=== PATIENT | male | born 1990 | race Caucasian/White ===

== ENCOUNTER 2020-07-22 14:39 | Outpatient (REF) | payer OTHER, SELFPAY | END 2020-07-22 14:40 | disposition home or self-care (01) | LOC: HO.LAB 14:39 | PROVIDERS: Visit Provider Internal Medicine | DX: Z20.822 Contact with and (suspected) exposure to COVID-19 (principal) | CPT/HCPCS: 36415; C9803; U0003 ==

== ENCOUNTER 2021-09-08 07:25 | Emergency (ER) | payer OTHER, SELFPAY ==
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
[2021-09-08 07:33] VITALS: BP 154/103; PULSE 100; RESP 18; O2SAT 99; BMI 30.4
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
[2021-09-08] MEDS: iohexoL 350 MG/ML 100 ML INFUS..BTL IV (08:28)
[2021-09-08 08:33] LABS: MANUAL DIFF FLAG NO
[2021-09-08 08:35] LABS: Basophils Percent Auto 0.2 % (0-2); Eosinophils Absolute Auto 0.2 X10*3/uL (0.0-0.4); Eosinophils Percent Auto 1.6 % (0-4); Hematocrit 33.9 % (42.0-52.0); Hemoglobin 10.7 g/dl (14.0-18.0); Imm Gran Abs Auto 0.07 X10*3/uL (0.00-0.03); Imm Gran Pct Auto 0.7 % (0.0-0.4); Lymphocytes Absolute Auto 1.5 X10*3/uL (1.2-4.9); Lymphocytes Percent Auto 15.1 % (20-40); Mean Corpuscular HGB Conc 31.6 g/dl (31.0-36.0); Mean Corpuscular Hemoglobin 26.6 pg (27.0-33.0); Mean Corpuscular Volume 84.1 fL (80.0-98.0); Mean Platelet Volume 10.2 fL (9.4-12.4); Monocytes Absolute Auto 0.6 X10*3/uL (0.1-1.2); Monocytes Percent Auto 5.4 % (2-11); Neutrophils Absolute Auto 7.8 x10*3/uL (2.0-8.3); Platelet Count 276 X10*3/uL (160-400); Red Blood Count 4.03 X10*6/uL (4.60-5.80); Red Cell Distribution Width 13.7 % (11.0-16.0); White Blood Count 10.2 X10*3/uL (4.8-10.8)
[2021-09-08] MEDS: 0.9 % Sodium Chloride 1,000 ML 999 ML IVCONT (08:35)
[2021-09-08 08:40] LABS: INTERNATIONAL NORM RATIO 1.4 (0.9-1.1); Prothrombin Time 16.1 SEC (9.9-13.0)
[2021-09-08 08:44] LABS: Ethanol < 10 mg/dL; Lactic Acid 1.1 mmol/L (0.5-2.0)
[2021-09-08 08:48] LABS: Alanine Aminotransferase 13 U/L (0-40); Albumin Level 3.9 g/dL (3.5-5.0); Alkaline Phosphatase 89 U/L (39-117); Anion Gap 12 (12-20); Aspartate Amino Transferase 18 U/L (5-37); Bilirubin Direct 0.3 mg/dL (0.0-0.5); Bilirubin Total 0.6 mg/dL (0.0-1.0); Blood Urea Nitrogen 8 mg/dL (9-16); Calcium 9.1 mg/dL (8.4-10.2); Carbon Dioxide 26 mmol/L (22-29); Chloride 98 mmol/L (96-108); Creatinine Clr Calc Pharmacy 158.2; Estimated Glomerular Filt Rate > 60; Glucose Random 102 mg/dL (60-115); Lipase 4 U/L (8-78); Potassium 3.7 mmol/L (3.3-5.1); Sodium 132 mmol/L (135-145); Total Protein 7.2 g/dL (6.5-8.0)
[2021-09-08 08:55] LABS: COVID-19 Test Negative (Negative)
[2021-09-08 09:32] VITALS: BP 133/87; PULSE 83; RESP 19; TEMP 37.1; O2SAT 95
== END 2021-09-08 12:04 ==
PROVIDERS: Emergency Provider Emergency Medicine
DX: S93.401A Sprain of unspecified ligament of right ankle, initial encounter (principal); M25.571 Pain in right ankle and joints of right foot; F14.10 Cocaine abuse, uncomplicated; F11.10 Opioid abuse, uncomplicated; M54.2 Cervicalgia; G44.309 Post-traumatic headache, unspecified, not intractable; R10.9 Unspecified abdominal pain; V47.5XXA Car driver injured in collision with fixed or stationary object in traffic accident, initial encounter; Y93.9 Activity, unspecified; Y92.410 Unspecified street and highway as the place of occurrence of the external cause; Y99.9 Unspecified external cause status; Z20.822 Contact with and (suspected) exposure to COVID-19; Z79.899 Other long term (current) drug therapy
CPT/HCPCS: 29515; 36415; 70450; 71260; 72125; 73610; 74177; 80048; 80076; 82077; 83605; 83690; 83735; 85025; 85610; 87635; 96360; 99284; Q9967

== ENCOUNTER 2022-05-14 16:05 | Emergency (ER) | payer OTHER, SELFPAY ==
[2022-05-14 16:10] VITALS: BP 122/84; BP 150/90; PULSE 95; PULSE 98; RESP 18; TEMP 36.6; O2SAT 100; O2SAT 95; BMI 37.5
--- NOTE | 2022-05-14 16:22 | PC.NURSE ---
patient a/ox4 . patient presents for overdose after snorting one bag of heroine . shital . heart rate regular at 98 beats per minute lungs clear . skin pink warm and dry . abdomen soft not tender . positive bowel sounds in all four quadrants . patient aware of plan of care to be observed after receiving narcan for overdose .
--- OUTSIDE RECORDS SUMMARY | 2022-05-14 16:33 | XMS_ITS | Continuity of Care Document ---
:1990 Author Organization [facility] Address [address] [place] [address]- Care Team Providers Name Role Phone Not on Staff, PCP Primary Care Physician Unavailable Encounter [facility] [place] Date(s): 04/27/20 - 04/27/[address] [address]- [facility] Encounter Diagnosis Toe fracture, right (Final) - 04/27/20 Discharge Disposition: A-D/C Home Attending Physician: Cristina Brantley MD Admitting Physician: Cristina Brantley MD Referring Physician: Not on Staff, Referring MD Allergies, Adverse Reactions, Alerts Substance Reaction Severity Status NKA Active Medications Crutches See Instructions, # 1 application, Maintenance, use as needed, 01/20/14 0:08:11, Compound Start Date: 01/20/14 Status: OrderedExcedrin Migraine 2 tablet, By Mouth, Every 6 hours, 0 Refills, Maintenance, 05/23/17 18:16:00 Start Date: 05/23/17 Status: Orderedibuprofen 400 mg oral tablet 1 tablet = 400 mg, By Mouth, Every 6 hours, # 30 tablet, 0 Refills, Maintenance, 01/20/14 0:07:41, Tablet Start Date: 01/20/14 Status: OrderedMethadone Liquid mg, By Mouth, 0 Refills, Maintenance, 05/23/17 18:16:12, Solution Start Date: 05/23/17 Status: OrderedPrilosec 40 mg oral enteric coated capsule 1 capsule = 40 mg, By Mouth, Daily, 0 Refills, Maintenance, 05/23/17 18:15:37 Start Date: 05/23/17 Status: OrderedSplint See Instructions, # 1 application, Maintenance, as needed, 01/20/14 0:08:18, Compound Start Date: 01/20/14 Status: Ordered Results Radiology Reports Exam Date Time Procedure Performing Provider Status 04/27/20 8:46 PM Ankle Min 3 Views Right Laura Diaz; Aut h (Verified) Notes:(Ankle Min 3 Views Right) Reason For Exam: DeformityRESULT: Ankle Min 3 Views Right Foot Min 3 Views Right, Ankle Min 3 Views Right Hx of Present Illness: Right 1st Toe Injury; Reason: Deformity; Clinical Question(s): Fracture COMPARISON: Right ankle x-ray 10/21/2016 FINDINGS: There is a nondisplaced vertical fracture involving the proximal aspect of the proximal phalanx great toe. Fracture approaches but does not appear to reach the articular surface of the first metatarsophalangeal joint. 7 mm corticated triangular ossific focus overlying the dorsal tarsometatarsal joints appears unchanged. Mild posterior calcaneal spurring. Joint spaces are intact. Talar dome intact. Small talar beak and small Stieda process. Mild soft tissue swelling about the great toe. IMPRESSION: Nondisplaced vertical fracture of proximal phalanx great toe. WSN: [id number] Ordering Physician: Hao Colon Dictated By: Hao James MD Dictated Date/Time: 04/27/20 9:14 pm Reviewed By: Hao James MD Signed By: Hao James MD Signed Date/Time: 04/27/20 9:14 pm Transcribed By: CALIN Transcribed Date/Time: 04/27/20 9:08 pm Exam Date Time Procedure Performing Provider Status 04/27/20 8:46 PM Foot Min 3 Views Right Laura Diaz; Auth (Verified) Notes:(Foot Min 3 Views Right) Reason For Exam: DeformityRESULT: Foot Min 3 Views Right Foot Min 3 Views Right, Ankle Min 3 Views Right Hx of Present Illness: Right 1st Toe Injury; Reason: Deformity; Clinical Question(s): Fracture COMPARISON: Right ankle x-ray 10/21/2016 FINDINGS: There is a nondisplaced vertical fracture involving the proximal aspect of the proximal phalanx great toe. Fracture approaches but does not appear to reach the articular surface of the first metatarsophalangeal joint. 7 mm corticated triangular ossific focus overlying the dorsal tarsometatarsal joints appears unchanged. Mild posterior calcaneal spurring. Joint spaces are intact. Talar dome intact. Small talar beak and small Stieda process. Mild soft tissue swelling about the great toe. IMPRESSION: Nondisplaced vertical fracture of proximal phalanx great toe. WSN: [id number] Ordering Physician: Hao Colon Dictated By: Hao James MD Dictated Date/Time: 04/27/20 9:14 pm Reviewed By: Hao James MD Signed By: Hao James MD Signed Date/Time: 04/27/20 9:14 pm Transcribed By: CALIN Transcribed Date/Time: 04/27/20 9:08 pm Vital Signs Most recent to oldest 1 2 3 [Reference Range]: Weight 90 kg 90 kg (04/27/20 9:42 PM) (04/27/20 7:19 PM) Oxygen Saturation [94-100 %] 99 % 98 % 99 % (04/27/20 9:42 PM) (04/27/20 7:20 PM) (04/27/20 7:17 PM) Pulse Rate [55-90 bpm] 67 bpm 81 bpm 89 bpm (04/27/20 9:42 PM) (04/27/20 7:20 PM) (04/27/20 7:17 PM) Blood Pressure [90-138/55-84 134/68 mm Hg 152/79 mm Hg mm Hg] (04/27/20 9:42 PM) *H* (04/27/20 7:20 PM) Respiratory Rate [16-30 20 br/min 20 br/min 18 br/mi n br/min] (04/27/20 9:42 PM) (04/27/20 7:20 PM) (04/27/20 7:17 PM) Temperature [96.8-100.4 98.5 DegF DegF] (04/27/20 7:20 PM) Mode of Delivery (Oxygen) Room air Room air Room a ir (04/27/20 9:42 PM) (04/27/20 7:20 PM) (04/27/20 7:17 PM) Blood pressure sites Arm, right (04/27/20 7:20 PM) Temperature Route Oral (04/27/20 7:20 PM) Dry Weight 90 kg 90 kg (04/27/20 9:42 PM) (04/27/20 7:19 PM) Social History Social History Type Response Smoking Status Never smoker entered on: 05/23/17 Sex
--- OUTSIDE RECORDS SUMMARY | 2022-05-14 16:33 | XMS_ITS | Continuity of Care Document ---
:1990 Author Organization [facility] Address [address] [place] [address]- Care Team Providers Name Role Phone Julian GORDON MD, Robert Dozier Primary Care Physician En[place] [facility] [place] Date(s): 05/04/22 - 05/04/[address] [address]- Discharge Disposition: A-D/C Home Attending Physician: Cristina Brantley MD Admitting Physician: Cristina Brantley MD Referring Physician: Not on Staff, Referring MD Allergies, Adverse Reactions, Alerts No Known Allergies Medications Crutches See Instructions, # 1 application, [...] 01/20/14 0:08:18, Compound Start Date: 01/20/14 Status: OrderedSuboxone 8 mg-2 mg sublingual film 2 film, Sublingual, Daily, dissolve under the tongue, # 10 film, 0 Refills, Maintenance, 05/04/22 15:41:00 EDT, Film, ABDIEL [id number], 2 film Sublingual Daily,x5 days,Instr:dissolve under the tongue Start Date: 05/04/22 Stop Date: 05/09/22 Status: Ordered Vital Signs Most recent to oldest 1 2 3 [Reference Range]: Oxygen Saturation [94-100 98 % 97 % 98 % %] (05/04/22 4:41 PM) (05/04/22 2:12 PM) (05/04/22 11:42 AM) Pulse Rate [55-90 bpm] 85 bpm 88 bpm 90 bpm (05/04/22 4:41 PM) (05/04/22 2:12 PM) (05/04/22 11:42 AM) Blood Pressure 136/76 mm Hg 151/96 mm Hg 153/100 mm Hg [90-138/55-84 mm Hg] (05/04/22 4:41 PM) *H* *H* (05/04/22 2:12 PM) (05/04/22 11: 42 AM) Respiratory Rate [16-30 19 br/min 18 br/min 20 br/mi n br/min] (05/04/22 4:41 PM) (05/04/22 2:12 PM) (05/04/22 11:42 AM) Temperature [96.8-100.4 97.7 DegF 97.9 DegF 97.7 Deg F DegF] (05/04/22 4:41 PM) (05/04/22 2:12 PM) (05/04/22 11:42 AM) Mode of Delivery (Oxygen) Room air Room air Room a ir (05/04/22 4:41 PM) (05/04/22 2:12 PM) (05/04/22 11:42 AM) Temperature Route Oral Oral Oral (05/04/22 4:41 PM) (05/04/22 2:12 PM) (05/04/22 11:42 AM) Social History Social History Type Response Smoking Status Never smoker entered on: 05/23/17 Sex Patient Care team information PersonnelName: Julian GORDON MD, Robert Dozier Address: Address: [address] [place] [id number]
--- OUTSIDE RECORDS SUMMARY | 2022-05-14 16:33 | XMS_ITS | Continuity of Care Document ---
:1990 Author Organization [facility] Address [address] [place] [address]- Care Team Providers Name Role Phone Not on Staff, PCP Primary Care Physician Unavailable Encounter [facility] [place] Date(s): 08/12/21 - 08/13/[address] [address]- Discharge Disposition: A-D/C Walkout Attending Physician: Not on Staff, Attending MD Admitting Physician: Not on Staff, Admitting MD Referring Physician: Not on Staff, Referring [...] 0:08:18, Compound Start Date: 01/20/14 Status: Ordered Vital Signs Most recent to oldest [Reference Range]: 1 2 Oxygen Saturation [94-100 %] 96 % 99 % (08/12/21 11:11 PM) (08/12/21 10:51 PM) Pulse Rate [55-90 bpm] 123 bpm 132 bpm *H* *H* (08/12/21 11:11 PM) (08/12/21 10:51 PM) Blood Pressure [90-138/55-84 mm Hg] 136/95 mm Hg (08/12/21 11:11 PM) Respiratory Rate [16-30 br/min] 16 br/min (08/12/21 11:11 PM) Temperature [96.8-100.4 DegF] 100.1 DegF (08/12/21 11:11 PM) Mode of Delivery (Oxygen) Room air (08/12/21 11:11 PM) Blood pressure sites Arm, right (08/12/21 11:11 PM) Temperature Route Oral (08/12/21 11:11 PM) Social History Social History Type Response Smoking Status Never smoker entered on: 05/23/17 Sex
--- OUTSIDE RECORDS SUMMARY | 2022-05-14 16:33 | XMS_ITS | Continuity of Care Document ---
:1990 Author Organization [facility] Address [address] [place] [address]- Care Team Providers Name Role Phone Julian GORDON MD, Robert Dozier Primary Care Physician Encounter [facility] [place] Date(s): 05/05/22 - 05/05/[address] [address]- Encounter Diagnosis Opioid overdose (Final) - 05/05/22 Discharge Disposition: A-D/C Home Attending Physician: Tariq Sheriff MD Admitting Physician: Tariq Sheriff MD Referring Physician: Not on Staff, Referring [...] Refills, Maintenance, 05/04/22 15:41:00 EDT, Film, ABDIEL [id number], 2 film Sublingual Daily,x5 days,Instr:dissolve under the tongue Start Date: 05/04/22 Stop Date: 05/09/22 Status: Ordered Vital Signs Most recent to oldest 1 2 3 [Reference Range]: Oxygen Saturation [94-100 %] 96 % 95 % 98 % (05/05/22 7:45 PM) (05/05/22 7:22 PM) (05/05/22 6:03 PM) Pulse Rate [55-90 bpm] 87 bpm 94 bpm 92 bpm (05/05/22 7:45 PM) *H* *H* (05/05/22 7:22 PM) (05/05/22 6:0 3 PM) Blood Pressure [90-138/55-84 122/72 mm Hg 118/72 mm Hg 113 /69 mm Hg mm Hg] (05/05/22 7:45 PM) (05/05/22 7:22 PM) (05/05/22 6:03 PM) Respiratory Rate [16-30 16 br/min 15 br/min 14 br/mi n br/min] (05/05/22 7:45 PM) *L* *L* (05/05/22 7:22 PM) (05/05/22 6:0 3 PM) Temperature [96.8-100.4 98.1 DegF 98.6 DegF DegF] (05/05/22 5:55 PM) (05/05/22 3:55 PM) Liters per Minute 2 L/min (05/05/22 6:03 PM) Mode of Delivery (Oxygen) Room air Room air Nasal cannula (05/05/22 7:45 PM) (05/05/22 7:22 PM) (05/05/22 6:03 PM) Blood pressure sites Arm, left Arm, left Arm, left (05/05/22 7:45 PM) (05/05/22 7:22 PM) (05/05/22 6:03 PM) Temperature Route Oral Oral (05/05/22 5:55 PM) (05/05/22 3:55 PM) Social History Social History Type Response Smoking Status Never smoker entered on: 05/23/17 Sex Patient Care team information PersonnelName: Julian GORDON MD, Robert Dozier Address: Address: [address] [place] [id number]
--- OUTSIDE RECORDS SUMMARY | 2022-05-14 16:33 | XMS_ITS | Continuity of Care Document ---
:1990 Author Organization [facility] Address [address] [place] [address]- Care Team Providers Name Role Phone Not on Staff, PCP Primary Care Physician Unavailable Encounter [facility] [place] Date(s): 02/28/20 - 02/29/[address] [address]- [facility] Discharge Disposition: A-D/C Walkout Attending Physician: Not [...] recent to oldest [Reference Range]: 1 2 Height 170 cm (02/28/20 10:27 PM) Weight 91 kg (02/28/20 10:27 PM) Oxygen Saturation [94-100 %] 99 % 100 % (02/28/20 10:27 PM) (02/28/20 10:25 PM) Pulse Rate [55-90 bpm] 112 bpm 134 bpm *H* *H* (02/28/20 10:27 PM) (02/28/20 10:25 PM) Blood Pressure [90-138/55-84 mm Hg] 157/88 mm Hg *H* (02/28/20 10:27 PM) Respiratory Rate [16-30 br/min] 18 br/min 18 br/mi n (02/28/20 10:27 PM) (02/28/20 10:25 PM) Temperature [96.8-100.4 DegF] 99.1 DegF (02/28/20 10:27 PM) Mode of Delivery (Oxygen) Room air Room air (02/28/20 10:27 PM) (02/28/20 10:25 PM) Blood pressure sites Arm, left (02/28/20 10:27 PM) Temperature Route Oral (02/28/20 10:27 PM) Dry Weight 91 kg (02/28/20 10:27 PM) Social History Social History Type Response Smoking Status Never smoker entered on: 05/23/17 Sex
--- OUTSIDE RECORDS SUMMARY | 2022-05-14 16:33 | XMS_ITS | Continuity of Care Document ---
:1990 Author Organization [facility] Address [address] [place] [address]- Care Team Providers Name Role Phone Not on Staff, PCP Primary Care Physician Unavailable Encounter [facility] [place] Date(s): 02/19/22 - 02/19/22 [facility] [address] [place] [address]- Encounter Diagnosis Injury of left thumb (Final) - 02/19/22 Discharge Disposition: A-D/C Senior Care, Long Term, or [facility]pc Fac Attending Physician: Deon Dodson MD Admitting Physician: Deon Dodson MD Referring Physician: Not on Staff, Referring [...] Exam Date Time Procedure Performing Provider Status 02/19/22 5:43 PM Hand Min 3 Views Left Yael Moctezuma; Auth (Paulo adorno) Notes:(Hand Min 3 Views Left) Reason For Exam: PainRESULT: Hand Min 3 Views Left PROCEDURE: Hand Min 3 Views Left CLINICAL INDICATION: 31 years old Male with Reason: Pain; Clinical Question(s): Fracture. TECHNIQUE: Three views of the LEFT hand are obtained. COMPARISONS: None. FINDINGS: Bones and joints: No fracture or dislocation. Joint spaces are normal. Soft Tissues: Regional soft tissues are unremarkable other than subcutaneous edema along the base ofthe thumb.. Radiolucent wrist band noted. No evidence of radiopaque foreign body. IMPRESSION: 1. No evidence of acute bony injuries. 2. Soft tissue swelling base of thumb. Thank you for allowing me to participate in the care of this patient. WSN: [id number] Ordering Physician: Rafat Bateman Dictated By: Chris Esqueda MD Dictated Date/Time: 02/19/22 5:46 pm Reviewed By: Chris Esqueda MD Signed By: Chris Esqueda MD Signed Date/Time: 02/19/22 5:46 pm Transcribed By: CALIN Transcribed Date/Time: 02/19/22 5:44 pm Vital Signs Most recent to oldest [Reference Range]: 1 2 Oxygen Saturation [94-100 %] 100 % 98 % (02/19/22 7:36 PM) (02/19/22 5:21 PM) Pulse Rate [55-90 bpm] 77 bpm 81 bpm (02/19/22 7:36 PM) (02/19/22 5:21 PM) Blood Pressure [90-138/55-84 mm Hg] 120/44 mm Hg 130/ 67 mm Hg (02/19/22 7:36 PM) (02/19/22 5:21 PM) Respiratory Rate [16-30 br/min] 20 br/min 18 br/mi n (02/19/22 7:36 PM) (02/19/22 5:21 PM) Temperature [96.8-100.4 DegF] 98 DegF 98.3 DegF (02/19/22 7:36 PM) (02/19/22 5:21 PM) Mode of Delivery (Oxygen) Room air Room air (02/19/22 7:36 PM) (02/19/22 5:21 PM) Temperature Route Oral Oral (02/19/22 7:36 PM) (02/19/22 5:21 PM) Social History Social History Type Response Smoking Status Never smoker entered on: 05/23/17 Sex
--- NOTE | 2022-05-14 16:36 | ED_ITS ---
HPI - Overdose General Chief Complaint: Overdose Stated Complaint: OD,NARCAN GIVEN W/GOOD RESULTS Time Seen by Provider: 05/14/22 16:20 Source: patient Mode of arrival: EMS History of Present Illness HPI Narrative: 31-year-old male who is brought in by EMS after he reportedly snorted 1 bag of heroin and passed out in the [employer]eng shop striking his head. He received Narcan and supplemental oxygen with good response and is currently feeling awake and alert. He denies any intentional overdose, denies SI/HI, denies any other medical problems and at this time he is adamantly refusing any detox or evaluation. Related Data Allergies Allergy/AdvReac Type Severity Reaction Status Date / Time loratadine [From CLARITIN] Allergy Unknown UNK Unverified 03/27/20 16:53 tetracycline [TETRACYCLINE] Allergy Unknown HIVES Unverified 03/27/20 16:53 Review of Systems Review of Systems: Pertinent positives and negatives as stated in HPI 10 point review of systems is otherwise negative. PMFSH Past Medical History Source: nursing notes reviewed Medical History No known health problems Polysubstance abuse Social History Social History Patient Tobacco Use Status: Current everyday Tobacco user Smoked in Last 30 Days: Yes Substance Use Type: Crack/Cocaine and Marijuana Advance Directives: No Advance Directives Information Provided: No Physical Exam Vital Signs: Vital Signs: Last Vital Signs Temp 97.9 F 05/14/22 16:10 Pulse 98 05/14/22 16:10 Resp 18 05/14/22 16:10 BP 150/90 H 05/14/22 16:10 Pulse Ox 100 05/14/22 16:10 O2 Del Method 05/14/22 16:10 BMI result Body Mass Index 37.5 VITAL SIGNS: Reviewed. GENERAL: Well developed, well nourished, in no acute distress. HEAD: Normocephalic/small abrasion to right forehead EYES: PERRLA, EOMI EARS: Ext canals without abnormality OROPHARYNX: no oral lesions noted, posterior pharynx clear LUNGS: Normal breath sounds. No adventitious sounds or accessory muscle use. SpO2<100> CARDIOVASCULAR: Regular rate and rhythm without noted murmurs ABDOMEN: Soft, non-tender, non-distended with bowel sounds. MUSCULOSKELETAL: No tenderness, deformities, or effusions noted on gross insp ection. EXTREMITIES: No cyanosis, clubbing or edema. SKIN: Inspection of the skin reveals no rashes NEUROLOGIC: Alert and oriented x 4. Course Course Course Narrative: 31-year-old male with history and clinical presentation consistent with accidental overdose with heroin and currently denies any SI/HI and is refusing any evaluation by the recovery team. Patient understands that he will be staying in the emergency room for 2 hours. Patient will be discharged with home Narcan and has a safe ride home as his father is at bedside. Patient is hemodynamically stable and will be discharged home with home Narcan. Discharge Plan Discharge Clinical Impression: Drug overdose, Heroin abuse Patient Disposition: Home, Self-Care Instructions: Polysubstance Abuse (ED), Adult Overdose (ED), Naloxone (Into the nose) Additional Instructions: Return to the ER for further help, should you needed it.
--- NOTE | 2022-05-14 16:56 | MHC.RECOVSUP ---
? Reason for consult Recovery Support o Current location: ED18H o Identified substance use concern: Heroin - Overdose - Support ? Intervention: o Community resources provided o Harm reduction discussion ? Plan: o Patient to follow up with [facility] after discharge ? Additional information: Met with Patient and we talk about Harm Reduction & recovery.. We talk about onions.. Patient had 6 month clean and did a bag of Heroin.. Patient stated that he will be going to [facility]..
== END 2022-05-14 18:27 | disposition home or self-care (01) ==
PROVIDERS: Emergency Provider Student in an Organized Health Care Education/Training Program
DX: T40.1X1A Poisoning by heroin, accidental (unintentional), initial encounter (principal); Y92.9 Unspecified place or not applicable; F11.10 Opioid abuse, uncomplicated; F14.10 Cocaine abuse, uncomplicated; F17.200 Nicotine dependence, unspecified, uncomplicated; Z71.6 Tobacco abuse counseling
CPT/HCPCS: 99284; 99285

== ENCOUNTER 2022-05-15 04:56 | Observation (INO) | payer OTHER, SELFPAY ==
[2022-05-15] VITALS (9 sets, daily range): BP systolic 107–138; BP diastolic 47–81; PULSE 72–118; RESP 10–20; TEMP 37–37.2; O2SAT 88–100; BMI 37.5
--- NOTE | ~2022-05-15 | XR_ITS ---
EXAMINATION: XR CHEST CLINICAL INFORMATION: Shortness of breath COMPARISON: 11/28/2018 TECHNIQUE: Frontal view of the chest was obtained. FINDINGS: Low lung volumes. No acute finding. No infiltrate or effusion. No failure. The cardiac silhouette is felt to be within normal limits. The hilar structures do not appear pathologically enlarged. XR/XR chest 1V IMPRESSION: No acute finding
--- OUTSIDE RECORDS SUMMARY | 2022-05-15 05:43 | XMS_ITS | Continuity of Care Document ---
:1990 Author Organization [facility] Address [address] [place] [id number]- Care Team Providers Name Role Phone Not on Staff, PCP Primary Care Physician Unavailable [place] [facility] [place]/14/22 - 05/14/[address] [address]- Encounter Diagnosis Opioid overdose (Final) - 05/14/22 Opioid use disorder (Final) - 05/14/22 Discharge Disposition: A-D/C Home Attending Physician: Dyana Eubanks MD Admitting Physician: Dyana Eubanks MD Referring Physician: Not on Staff, Referring [...] 01/20/14 0:07:41, Tablet Start Date: 01/20/14 Status: OrderedIbuprofen Tablet 400 mg, Tablet, By Mouth, Once, STAT, 05/14/22 20:41:00 EDT, Stop date 05/14/22 20:41:00 EDT Start Date: 05/14/22 Stop Date: 05/14/22 Status: CompletedMethadone Liquid mg, By Mouth, 0 Refills, Maintenance, [...] Refills, Maintenance, 05/04/22 15:41:00 EDT, Film, ABDIEL [id number], 2 film Sublingual Daily,x5 days,Instr:dissolve under the tongue Start Date: 05/04/22 Stop Date: 05/09/22 Status: OrderedSuboxone 8 mg-2 mg Sublingual Film 2 film, Sublingual, Daily, or as directed dissolve under the tongue [id number], # 10 film, 0 Refills, Maintenance, 05/14/22 22:56:00 EDT, [facility]/pharmacy #[id number], Partial fill upon patient request if the prescription is for a schedule II opioid drug.... Start Date: 05/14/22 Status: Ordered Vital Signs Most recent to oldest 1 2 3 [Reference Range]: Oxygen Saturation [94-100 %] 98 % 99 % 98 % (05/14/22 11:45 PM) (05/14/22 9:22 PM) (05/14/22 8: 42 PM) Pulse Rate [55-90 bpm] 82 bpm 80 bpm 78 bpm (05/14/22 11:45 PM) (05/14/22 9:22 PM) (05/14/22 8: 42 PM) Blood Pressure [90-138/55-84 115/75 mm Hg 122/78 mm Hg 118 /85 mm Hg mm Hg] (05/14/22 11:45 PM) (05/14/22 9:22 PM) (05/14/22 8: 42 PM) Respiratory Rate [16-30 18 br/min 16 br/min 18 br/mi n br/min] (05/14/22 11:45 PM) (05/14/22 10:17 PM) (05/14/22 9 :22 PM) Temperature [96.8-100.4 DegF] 98 DegF 98.2 DegF (05/14/22 11:45 PM) (05/14/22 8:42 PM) Mode of Delivery (Oxygen) Room air Room air Room a ir (05/14/22 11:45 PM) (05/14/22 9:22 PM) (05/14/22 8: 42 PM) Blood pressure sites Arm, right Arm, left (05/14/22 9:22 PM) (05/14/22 8:42 PM) Temperature Route Oral (05/14/22 8:42 PM) Social History Social History Type Response Smoking Status Never smoker entered on: 05/23/17 Sex Patient Care team information PersonnelName: Not on Staff, PCP
[2022-05-15 06:13] LABS: Amphetamine Screen Urine Not Detected (Not Detect); Barbiturates, Urine Not Detected (Not Detect); Benzodiazepines Screen Urine Not Detected (Not Detect); Cannabinoid Screen Urine POSITIVE (Not Detect); Cocaine Screen Urine POSITIVE (Not Detect); Fentanyl, urine POSITIVE (Not Detect); Opiate Screen Urine POSITIVE (Not Detect); Phencyclidine Screen Urine Not Detected (Not Detect)
--- NOTE | 2022-05-15 06:40 | ED.GENADULT ---
HPI - General Adult General Chief complaint: General Medical Stated complaint: drug use Time Seen by Provider: 05/15/22 06:27 Source: patient and EMS Mode of arrival: EMS Limitations: no limitations History of Present Illness HPI narrative: Patient comes to emergency room via EMS after having an accidental overdose. Patient was found by his father all conscious, the father administered Narcan and patient woke up. Patient denies drug use. However, he was discharged last night from [facility] for an overdose. Patient complaining of nausea vomiting and diarrhea after receiving Narcan. When I spoke to the patient, patient admits to using multiple substances. Patient states that this was an accidental overdose, denies suicidal or homicidal ideation. Related Data Allergies Allergy/AdvReac Type Severity Reaction Status Date / Time loratadine [From CLARITIN] Allergy Unknown UNK Unverified 03/27/20 16:53 tetracycline [TETRACYCLINE] Allergy Unknown HIVES Unverified 03/27/20 16:53 Review of Systems Review of Systems: Constitutional : No Weight loss, No Fever, No Chills, No Night Sweats, No Fatigue, No Malaise ENT/Mouth : No Hearing loss, No Ear Pain, No Nasal Congestion, No Sinus Pain, No Hoarseness, No sore throat, No Rhinorrhea, No Swallowing Difficulty Eyes: No Eye Pain, No Swelling, No Redness, No Foreign Body, No Discharge, No Vision Changes Cardiovascular : No Chest Pain, No SOB, No Dyspnea on Exertion, No Orthopnea, No Edema, No Palpitations Respiratory : No Cough, No Sputum, No Wheezing, No Smoke Exposure, No Dyspnea Gastrointestinal : No Nausea, No Vomiting, No Diarrhea, No Constipation, No abdominal Pain, No Hematochezia, No Melena Genitourinary : no irregular bleeding, No Dysuria, No Urinary Frequency, No Hematuria, No Urinary Incontinence, No Urgency, No Flank Pain, No Urinary Flow Changes, No Hesitancy Musculoskeletal : No joint pain, No Myalgias, No Joint Swelling Skin : No Skin Lesions, No rash Neuro : No Weakness, No Numbness, No Paresthesias, No Loss of Consciousness, No Dizziness, No Headache Psych : No Anxiety/Panic, No Depression, No SI/HI/AH/VH, substance abuse Heme/Lymph: No Bruising, No Bleeding,No Lymphadenopathy Endocrine : No Polyuria, No Polydipsia, No Temperature Intolerance PMF Past Medical History Medical History No known health problems Polysubstance abuse Social History Social History Alcohol intake: current Alcohol intake frequency: other Alcohol type: beer Patient Tobacco Use Status: Current everyday Tobacco user Smoked in Last 30 Days: Yes Use of substances other than those prescribed or required for medical reasons: Yes Substance Use Type: Heroin and Marijuana Substance Use Type Other:: Pt reports he sniffs heroin. Substance Use Frequency Other:: every other day Last Used Substance: Hours (ago) Any prior treatment program specific to substance use: No Advance Directives: No Advance Directives Information Provided: No Physical Exam ED Vital Signs: Vital Signs - 24 hr 05/15/22 05:05 05/15/22 05:48 Temperature 98.6 F 98.6 F Pulse Rate 83 84 Respiratory Rate 16 18 Blood Pressure 138/74 138/74 Pulse Oximetry 100 100 Oxygen Delivery Method Room Air Room Air BMI result Body Mass Index 37.5 Const Other: Appearance: Alert. Oriented X3. No acute distress. Somnolent but easily arousable Eyes: Pupils equal, round and reactive to light. ENT: Pharynx normal. Neck: Normal inspection. Neck supple. No lymph nodes noted. No crepitus CVS: Normal heart rate and rhythm. Pulses normal. Normal S1 and S2 Respiratory: No respiratory distress. Breath sounds normal. No Wheezing. No rales , oxygen saturation remains at 100% on room air Abdomen: Soft and nontender. No rigidity. No distention. Skin: Skin warm and dry. Normal skin color. Normal skin turgor. Extremities: No lower extremity edema. No Lacerations. No Rash Neuro: Oriented X 3. No motor deficit. No sensory deficit. Moving all extremities. No slurred speech. CN 2 through 12 grossly intact Psych: calm, cooperative, normal affect Course Course Course Narrative: Patient's oxygen 100% on room air, easily arousable. Somnolent but wakes up easily. Patient denies suicidal or homicidal ideation. Urine tested positive for opiates, fentanyl, cocaine and marijuana. Patient states that he would like to talk to the care team Care team consult pending. Patient will be provided with home Narcan Physician observation started at 06:40 Sign-out given to Dr. Maria Medical Decision Making Lab Data Labs: Lab Results 05/15/22 Range/Units 05:53 Urine Opiates Screen POSITIVE H (Not Detect) Urine Fentanyl Screen POSITIVE H (Not Detect) Ur Barbiturates Screen Not Detected (Not Detect) Ur Phencyclidine Scrn Not Detected (Not Detect) Ur Amphetamines Screen Not Detected (Not Detect) U Benzodiazepines Scrn Not Detected (Not Detect) Urine Cocaine Screen POSITIVE H (Not Detect) U Marijuana (THC) Screen POSITIVE H (Not Detect) Discharge Plan Discharge Clinical Impression: Accidental overdose, Polysubstance abuse Patient Disposition: Still a Patient
--- NOTE | 2022-05-15 07:47 | MHC.CARE ---
EVELYNE Pt [place] [facility] an accidental overdose on heroin. Pt tested postive for opiates, fentanyl, cocaine and marijuana. Pt reports he was recently released from [facility]. Pt reports he was doing well for a while though recently relapsed. Pt reports he has a therapist and is going to be connected with a psychiatrist on [facility] in [place]. Pt reports he has support through [facility]. Pt reports a hx of detox admissions prior to incarceration. Pt resides with his father who is supportive. Pt reports interest in detox. Plan for recovery team to complete detox bedsearch unspecified opiate use disorder adjustment disorder
--- NOTE | 2022-05-15 09:02 | PC.NURSE ---
PT A&Ox3, breakfast given, ambulated to BR independently. Denies any pain, denies SI/HI. VSS.
--- NOTE | 2022-05-15 11:00 | PC.NURSE ---
pt satting high 30s - mid 40s, appearance dusky. pt placed on 6L oxy-mask, brought his O2 sat to 98 - 99%. pt falling asleep but awake easily when his name is called. denies sob/cp. vss
[2022-05-15] MEDS: Naloxone HCl 2 MG/2 ML SYRINGE IVPUSH (11:12)
[2022-05-15] MEDS: 0.9 % Sodium Chloride 1,000 ML 999 ML IVCONT (11:25)
[2022-05-15 11:34] LABS: MANUAL DIFF FLAG NO
[2022-05-15 11:37] LABS: Basophils Percent Auto 0.1 % (0-2); Eosinophils Percent Auto 0.1 % (0-4); Hematocrit 39.1 % (42.0-52.0); Hemoglobin 12.5 g/dl (14.0-18.0); Imm Gran Abs Auto 0.06 X10*3/uL (0.00-0.03); Imm Gran Pct Auto 0.4 % (0.0-0.4); Lymphocytes Absolute Auto 1.7 X10*3/uL (1.2-4.9); Lymphocytes Percent Auto 11.9 % (20-40); Mean Corpuscular Hemoglobin 26.8 pg (27.0-33.0); Mean Corpuscular Volume 83.7 fL (80.0-98.0); Mean Platelet Volume 9.8 fL (9.4-12.4); Monocytes Absolute Auto 0.6 X10*3/uL (0.1-1.2); Monocytes Percent Auto 3.8 % (2-11); Neutrophils Percent Auto 83.7 % (45-73); Platelet Count 274 X10*3/uL (160-400); Red Blood Count 4.67 X10*6/uL (4.60-5.80); Red Cell Distribution Width 13.6 % (11.0-16.0); White Blood Count 14.3 X10*3/uL (4.8-10.8)
[2022-05-15] MEDS: Naloxone HCl Nasal 4 MG SPRAY NOSTRILALT (11:46)
[2022-05-15 12:13] LABS: Alanine Aminotransferase 33 U/L (0-40); Albumin Level 4.4 g/dL (3.5-5.0); Alkaline Phosphatase 107 U/L (39-117); Anion Gap 18 (12-20); Aspartate Amino Transferase 29 U/L (5-37); Bilirubin Total 0.5 mg/dL (0.0-1.0); Blood Urea Nitrogen 12 mg/dL (9-16); Calcium 8.6 mg/dL (8.4-10.2); Carbon Dioxide 25 mmol/L (22-29); Chloride 99 mmol/L (96-108); Creatinine Clr Calc Pharmacy 106.8; Estimated Glomerular Filt Rate > 60; Glucose Random 124 mg/dL (60-115); Potassium 4.7 mmol/L (3.3-5.1); Sodium 137 mmol/L (135-145); Total Protein 7.3 g/dL (6.5-8.0)
[2022-05-15] MEDS: Acetaminophen 325 MG TABLET 650 MG PO (12:27)
[2022-05-15] MEDS: ondansetron HCL 4 MG/2 ML VIAL IVPUSH (12:27)
--- NOTE | 2022-05-15 13:28 | PC.NURSE ---
PT father in to visit and brought PTs new suboxone prescription. PT stated I took one just now, I was told that after 24 hours I need to take this . Dr. Gonzalez notified. Suboxone sent home with father.
--- NOTE | 2022-05-15 14:18 | ED.GENADULT ---
HPI - General Adult General Chief complaint: General Medical Stated complaint: drug use Time Seen by Provider: 05/15/22 06:27 Source: patient and EMS Mode of arrival: EMS Limitations: no limitations Related Data Allergies Allergy/AdvReac Type Severity Reaction Status Date / Time loratadine [From CLARITIN] Allergy Unknown UNK Unverified 03/27/20 16:53 tetracycline [TETRACYCLINE] Allergy Unknown HIVES Unverified 03/27/20 16:53 PMFSH Past Medical History Medical History No known health problems Polysubstance abuse Social History Social History Alcohol intake: current Alcohol intake frequency: other Alcohol type: beer Patient Tobacco Use Status: Current everyday Tobacco user Smoked in Last 30 Days: Yes Use of substances other than those prescribed or required for medical reasons: Yes Substance Use Type: Heroin and Marijuana Substance Use Type Other:: Pt reports he sniffs heroin. Substance Use Frequency Other:: every other day Last Used Substance: Hours (ago) Any prior treatment program specific to substance use: No Advance Directives: No Advance Directives Information Provided: No Physical Exam ED Vital Signs: Vital Signs - 24 hr 05/15/22 05:05 05/15/22 05:48 05/15/22 09:04 Temperature 98.6 F 98.6 F Pulse Rate 83 84 105 H Respiratory Rate 16 18 18 Blood Pressure 138/74 138/74 126/50 L Pulse Oximetry 100 100 Oxygen Delivery Method Room Air Room Air Room Air Oxygen Flow Rate 05/15/22 11:06 05/15/22 11:18 05/15/22 13:10 Temperature 98.9 F Pulse Rate 118 H 99 85 Respiratory Rate 10 L 15 17 Blood Pressure 127/63 115/81 110/47 L Pulse Oximetry 98 100 96 Oxygen Delivery Method Nasal Cannula Nasal Cannula Room Air Oxygen Flow Rate 6 6 BMI result Body Mass Index 37.5 Course Reevaluation(s) Reevaluation #1: I Medical Decision Making Lab Data Result diagrams: 05/15/22 11:20 05/15/22 11:20 Labs: Lab Results 05/15/22 05/15/22 05/15/22 Range/Units 05:53 11:20 11:20 WBC 14.3 H (4.8-10.8) X10*3/uL RBC 4.67 (4.60-5.80) X10*6/uL Hgb 12.5 L (14.0-18.0) g/dl Hct 39.1 L (42.0-52.0) % MCV 83.7 (80.0-98.0) fL MCH 26.8 L (27.0-33.0) pg MCHC 32.0 (31.0-36.0) g/dl RDW 13.6 (11.0-16.0) % Plt Count 274 (160-400) X10*3/uL MPV 9.8 (9.4-12.4) fL Immature Gran % (Auto) 0.4 (0.0-0.4) % Neut % (Auto) 83.7 H (45-73) % Lymph % (Auto) 11.9 L (20-40) % [place] % (Auto) 3.8 (2-11) % Eos % (Auto) 0.1 (0-4) % Baso % (Auto) 0.1 (0-2) % Lymph # (Auto) 1.7 (1.2-4.9) X10*3/uL [place] # (Auto) 0.6 (0.1-1.2) X10*3/uL Eos # (Auto) 0.0 (0.0-0.4) X10*3/uL Baso # (Auto) 0.0 (0.0-0.2) X10*3/uL Abs Immat Gran (auto) 0.06 H (0.00-0.03) X10*3/uL Absolute Neuts (auto) 12.0 H (2.0-8.3) x10*3/uL Absolute Nucleated RBC 0.000 (0.0-0.012) X10*3/uL Nucleated RBC % (auto) 0.0 (0.0-0.2) /100WBC Sodium 137 (135-145) mmol/L Potassium 4.7 D (3.3-5.1) mmol/L Chloride 99 (96-108) mmol/L Carbon Dioxide 25 (22-29) mmol/L Anion Gap 18 (12-20) BUN 12 (9-16) mg/dL Creatinine 1.20 (0.5-1.4) mg/dL Estim Creat Clear Calc 106.8 Estimated GFR > 60 Random Glucose 124 H (60-115) mg/dL Calcium 8.6 (8.4-10.2) mg/dL Total Bilirubin 0.5 (0.0-1.0) mg/dL AST 29 D (5-37) U/L ALT 33 (0-40) U/L Alkaline Phosphatase 107 D (39-117) U/L Total Protein 7.3 (6.5-8.0) g/dL Albumin 4.4 (3.5-5.0) g/dL Urine Opiates Screen POSITIVE H (Not Detect) Urine Fentanyl Screen POSITIVE H (Not Detect) Ur Barbiturates Screen Not Detected (Not Detect) Ur Phencyclidine Scrn Not Detected (Not Detect) Ur Amphetamines Screen Not Detected (Not Detect) U Benzodiazepines Scrn Not Detected (Not Detect) Urine Cocaine Screen POSITIVE H (Not Detect) U Marijuana (THC) Screen POSITIVE H (Not Detect) Discharge Plan Discharge Clinical Impression: Accidental overdose, Polysubstance abuse Patient Disposition: Still a Patient
--- NOTE | 2022-05-15 15:30 | PC.NURSE ---
PT sat o2 88-89% on RA. Placed on 2L NC with capnography, O2 sat 98-99%. No apparent distress. Denies SOB.
--- NOTE | 2022-05-15 21:48 | PC.NURSE ---
This RN has spoken with patient's dad Robert George [phone]. Patient will seeing [facility] team tomorrows morning.
--- NOTE | 2022-05-15 22:06 | PC.NURSE ---
Pt was not given nalaxone to take home d/t pt is not being d/c. provider is notified.
[2022-05-15 22:07] LABS: Amphetamine Screen Urine Not Detected (Not Detect); Barbiturates, Urine Not Detected (Not Detect); Benzodiazepines Screen Urine Not Detected (Not Detect); Cannabinoid Screen Urine POSITIVE (Not Detect); Cocaine Screen Urine POSITIVE (Not Detect); Fentanyl, urine POSITIVE (Not Detect); Opiate Screen Urine POSITIVE (Not Detect); Phencyclidine Screen Urine Not Detected (Not Detect)
[2022-05-16] VITALS (8 sets, daily range): BP systolic 100–136; BP diastolic 53–79; PULSE 66–106; RESP 10–21; TEMP 37–37.4; O2SAT 90–99
[2022-05-16] MEDS: 0.9 % Sodium Chloride 1,000 ML 999 ML IVCONT (07:37)
--- NOTE | 2022-05-16 07:55 | PC.NURSE ---
Patient found to be cyanotic with sats in the 20s. Patient given narcan by Dr. Maria, placed on a nonrebreather to which the patient became responsive. Sats were brought up to th emid 90s. Security called. Patient denies taking anything
[2022-05-16 07:56] LABS: Glucose, Whole Blood 267 mg/dL (60-115)
[2022-05-16 07:58] LABS: Basophils Absolute Auto 0.1 X10*3/uL (0.0-0.2); Basophils Percent Auto 0.2 % (0-2); Hematocrit 40.2 % (42.0-52.0); Hemoglobin 12.7 g/dl (14.0-18.0); Imm Gran Abs Auto 0.27 X10*3/uL (0.00-0.03); Imm Gran Pct Auto 1.1 % (0.0-0.4); Lymphocytes Absolute Auto 1.5 X10*3/uL (1.2-4.9); Lymphocytes Percent Auto 6.3 % (20-40); MANUAL DIFF FLAG SCAN; Mean Corpuscular HGB Conc 31.6 g/dl (31.0-36.0); Mean Corpuscular Hemoglobin 26.7 pg (27.0-33.0); Mean Corpuscular Volume 84.5 fL (80.0-98.0); Mean Platelet Volume 9.7 fL (9.4-12.4); Monocytes Absolute Auto 0.7 X10*3/uL (0.1-1.2); Monocytes Percent Auto 2.9 % (2-11); Neutrophils Absolute Auto 21.1 x10*3/uL (2.0-8.3); Neutrophils Percent Auto 89.5 % (45-73); Platelet Count 396 X10*3/uL (160-400); Red Blood Count 4.76 X10*6/uL (4.60-5.80); Red Cell Distribution Width 13.5 % (11.0-16.0); SCAN SMEAR FLAG 1; White Blood Count 23.6 X10*3/uL (4.8-10.8)
[2022-05-16] MEDS: ondansetron HCL 4 MG/2 ML VIAL IVPUSH (07:58)
--- NOTE | 2022-05-16 08:11 | PC.NURSE ---
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
[2022-05-16 08:18] LABS: SLIDE REVIEW VERIFIED
[2022-05-16 08:22] LABS: Alanine Aminotransferase 34 U/L (0-40); Albumin Level 4.7 g/dL (3.5-5.0); Alkaline Phosphatase 107 U/L (39-117); Aspartate Amino Transferase 23 U/L (5-37); Bilirubin Total 0.4 mg/dL (0.0-1.0); Blood Urea Nitrogen 13 mg/dL (9-16); Calcium 8.7 mg/dL (8.4-10.2); Creatinine Clr Calc Pharmacy 93.6; Estimated Glomerular Filt Rate > 60; Glucose Random 304 mg/dL (60-115); Total Protein 7.5 g/dL (6.5-8.0)
[2022-05-16 08:33] LABS: Anion Gap 18 (12-20); Carbon Dioxide 27 mmol/L (22-29); Chloride 95 mmol/L (96-108); Potassium 6.2 mmol/L (3.3-5.1); Sodium 134 mmol/L (135-145)
[2022-05-16] MEDS: Albuterol Sulfate 7.5 MG, Albuterol Sulfate (0.083%) 2.5 MG 10 MG INHALE (08:44)
--- NOTE | 2022-05-16 09:08 | ECG_ITS ---
Test Reason : Tachycardia Blood Pressure : / mmHG Vent. Rate : 090 BPM Atrial Rate : 090 BPM P-R Int : 142 ms QRS Dur : 080 ms QT Int : 338 ms P-R-T Axes : 049 065 021 degrees QTc Int : 413 ms Normal sinus rhythm Nonspecific ST abnormality Septal leads Abnormal ECG When compared with ECG of 09-MAR-2020 23:29, Heart rate has increased ST more elevated in Septal leads Referred By: Marcelo Maria Electronically Signed By:RASHIDA JUNIOR MD
--- NOTE | 2022-05-16 09:08 | PM.IMHP ---
History of Present Illness Date of Service: 05/16/22 Chief Complaint: Overdose, high WBC and hyperkalemia 31 year old male with IVDA abuse frequent overdose, seen in ED 2 days earlier with heroin overdose and released. He presented yet again with an apparent overdose treated with Narcan, but while in the ED reportedly his father brought his Suboxone which he took and later on was noted to be severe hyoxic again and unresponsive and given Narcan again. he admits to using dope before coming in. Presently his awake and talking and but falls asleep easily, his on oxygen and O2 sat 99 on monitor. Additinally his labs now show WBC of 23 up from 14 yesterday and potassium is 6.2 with creatinine of 1.37. potassium day prior was normal at 4.7. He has no sings or symptoms of infection. He's given Cefepime. Utox = cocain, MJ and Fentanyl, opioites. Review of Systems Review of Systems: Gen: no fever Resp: no sob, no cough CV: no chest, no BUTTS, no leg edema GI: No n/v, no abd pain Neuro: No confusion Yes all other systems are reviewed and are negative [facility] Medical History No known health problems Polysubstance abuse Polysubstance abuse Social History Household Members: Family Housing: Apartment Do you presently have visiting nurse or other home services: No Alcohol intake: current Alcohol intake frequency: other Alcohol type: beer Patient Tobacco Use Status: Current someday Tobacco user Tobacco use type: Cigarette Substance Use Type: Crack/Cocaine, Heroin and Marijuana service: No Current occupational status: unemployed Meds Allergies Allergy/AdvReac Type Severity Reaction Status Date / Time loratadine [From CLARITIN] Allergy Unknown UNK Unverified 07/27/22 15:09 tetracycline [TETRACYCLINE] Allergy Unknown HIVES Unverified 07/27/22 15:09 Active Medications: Current Medications Cefepime HCl 2 gm/ Sodium (Chloride) 50 mls @ 100 mls/hr IV ONCE ONE Stop: 05/16/22 09:34 Home Medications Medication Instructions Recorded Confirmed Last Taken Type hydroxyzine pamoate 25 mg capsule 3 cap PO BEDTIME 05/16/22 05/16/22 Unknown History hydroxyzine pamoate 25 mg capsule 25 mg PO DAILY@0800,1200 05/16/22 05/16/22 Unknown History naloxone 4 mg/actuation nasal spray 4 mg intranasal Q2M PRN OVERDOSE 05/16/22 05/16/22 Unknown History trazodone 150 mg tablet 150 mg PO BEDTIME 07/21/22 Unknown History Physical Exam Vital Signs and Narrative: Vital Signs: Last Vital Signs Temp 99.4 F 05/16/22 08:39 Pulse 92 05/16/22 08:46 Resp 18 05/16/22 08:46 BP 136/69 05/16/22 08:39 Pulse Ox 95 05/16/22 08:39 O2 Del Method 05/16/22 08:39 O2 Flow Rate 15 05/16/22 08:39 BMI result Body Mass Index 37.5 Const: Other: Constitutional: Alert, in no distress, overweight. Mental Status: Oriented to person, place and time. Eyes: Pupils are equal, round and reactive to light. Ear, Nose and Throat: Oropharynx clear, mucous membranes moist. Ears and nose without eformities. Respiratory: Clear to auscultation. No wheezing, rales or rhonchi. Cardiovascular: S1 S2 regular. No murmurs, rubs or gallops. Gastrointestinal: Abdomen soft, non-tender, non-distended. Normal bowel sounds.? Neurologic: Cranial nerves II-XII grossly intact. No focal neurological deficits. Moves all extremities spontaneously.? Skin: No rashes or lesions.? Musculoskeletal: No cyanosis or clubbing. Psychiatric: Normal mood and affect? Results Labs 05/18/22 05:09 05/18/22 05:09 Labs: Laboratory Results - last 24 hr 05/15/22 05/15/22 05/15/22 11:20 11:20 21:40 MCV 83.7 MCH 26.8 L MCHC 32.0 RDW 13.6 Plt Count 274 MPV 9.8 Immature Gran % (Auto) 0.4 Neut % (Auto) 83.7 H Lymph % (Auto) 11.9 L Mchenry % (Auto) 3.8 Eos % (Auto) 0.1 Baso % (Auto) 0.1 Lymph # (Auto) 1.7 Mchenry # (Auto) 0.6 Eos # (Auto) 0.0 Baso # (Auto) 0.0 Abs Immat Gran (auto) 0.06 H Absolute Neuts (auto) 12.0 H Absolute Nucleated RBC 0.000 Nucleated RBC % (auto) 0.0 Smear Tech's Comments Anion Gap 18 Estim Creat Clear Calc 106.8 Estimated GFR > 60 POC Glucose Random Glucose 124 H Calcium 8.6 Total Bilirubin 0.5 AST 29 D ALT 33 Alkaline Phosphatase 107 D Total Protein 7.3 Albumin 4.4 Urine Opiates Screen POSITIVE H Urine Fentanyl Screen POSITIVE H Ur Barbiturates Screen Not Detected Ur Phencyclidine Scrn Not Detected Ur Amphetamines Screen Not Detected U Benzodiazepines Scrn Not Detected Urine Cocaine Screen POSITIVE H U Marijuana (THC) Screen POSITIVE H 05/16/22 05/16/22 05/16/22 07:34 07:38 07:38 MCV 84.5 MCH 26.7 L MCHC 31.6 RDW 13.5 Plt Count 396 D MPV 9.7 Immature Gran % (Auto) 1.1 H Neut % (Auto) 89.5 H Lymph % (Auto) 6.3 L Mchenry % (Auto) 2.9 Eos % (Auto) 0.0 Baso % (Auto) 0.2 Lymph # (Auto) 1.5 Mchenry # (Auto) 0.7 Eos # (Auto) 0.0 Baso # (Auto) 0.1 Abs Immat Gran (auto) 0.27 H Absolute Neuts (auto) 21.1 H Absolute Nucleated RBC 0.000 Nucleated RBC % (auto) 0.0 Smear Tech's Comments VERIFIED Anion Gap 18 Estim Creat Clear Calc 93.6 Estimated GFR > 60 POC Glucose 267 H Random Glucose 304 H D Calcium 8.7 Total Bilirubin 0.4 AST 23 ALT 34 Alkaline Phosphatase 107 Total Protein 7.5 Albumin 4.7 Urine Opiates Screen Urine Fentanyl Screen Ur Barbiturates Screen Ur Phencyclidine Scrn Ur Amphetamines Screen U Benzodiazepines Scrn Urine Cocaine Screen U Marijuana (THC) Screen Imaging Radiologist's Impressions: Impressions Chest X-Ray 05/15/22 12:03 IMPRESSION: No acute finding Assessment and Plan (1) Opioid overdose: Status: Resolved (2) Polysubstance abuse: Status: Inactive (3) Hyperkalemia: Status: Resolved (4) ROSALBA (acute kidney injury): Status: Resolved (5) Leukocytosis: Status: Resolved Plan 31 y/o with polysubstance abuse here with opioid overdose resulting in signficant hypoxia, has leukocytosis and hyperkalemia Opioid overdose--improved with Narcan, concern of using in the hospital also, so therefore should not have visitors, addiction med consult ROSALBA--pre renal state.. Hydrate and repeat tomorrow Leukocytosis--likely reactive, no source of infection, no PNA on xray, has been given Cefepime. Add empiric Vanco and follow blood culture, repeat lab tomorow Hyperkalemia--Unclear what cause maybe, I suspect that this is spurious and will repeat now, given high dose albuterol admission to span 2 midnights for management of hyperkalemia, ROSALBA with IVF Quality Stroke Does the patient have a stroke diagnosis?: No VTE Prior VTE?: No VTE Risk Level:: Medical - low VTE Device Contraindication: Treatment Not Indicated VTE Drug Contraindication: Treatment Not Indicated
[2022-05-16 09:10] LABS: Glucose, Whole Blood 139 mg/dL (60-115)
[2022-05-16 09:10] LABS: Appearance Urine Clear; Color Urine Yellow; Glucose Urine UA >=1000 mg/dL (Negative); Leukocyte Esterase Urine Negative (Negative); Nitrite Urine Negative (Negative); UMIC TRIGGER UACC YES; Urine Blood Negative (Negative); Urine Ketones Trace mg/dL (Negative); Urine Protein Negative (Neg-Trace)
[2022-05-16 09:14] LABS: COVID-19 Test Negative (Negative); IDNOW Serial# 16C4AD1C
[2022-05-16 09:15] LABS: Bacteria Urine None Seen (None Seen); Hyaline Casts Urine 0-2 /LPF (0-2); RBC Urine 0-2 /HPF (0-2); Squamous Epithelial Cell Urine 0-2 /HPF (0-2); WBC Urine 0-5 /HPF (0-5)
[2022-05-16 09:15] LABS: Venous Blood Gas Refer to POC result
[2022-05-16 09:17] LABS: VBG Base Excess 8.7 mmol/L; VBG HCO3 35 mmol/L (22-26); VBG pCO2 58 mmHg; VBG pH 7.39 (7.32-7.43); VBG pO2 80 mmHg
[2022-05-16] MEDS: Sodium Polystyrene Sulfon/Sorb 15 GM/60 ML ORAL.SUSP 30 GM PO (09:37)
[2022-05-16] MEDS: cefEPime HCl 2 GM in 0.9 % Sodium Chloride 50 ML IV (09:48)
[2022-05-16 10:00] LABS: Lactic Acid 1.4 mmol/L (0.5-2.0)
[2022-05-16 10:12] LABS: Anion Gap 14 (12-20); Blood Urea Nitrogen 12 mg/dL (9-16); Calcium 8.5 mg/dL (8.4-10.2); Carbon Dioxide 27 mmol/L (22-29); Chloride 98 mmol/L (96-108); Creatinine Clr Calc Pharmacy 130.8; Estimated Glomerular Filt Rate > 60; Glucose Random 119 mg/dL (60-115); Potassium 4.7 mmol/L (3.3-5.1); Sodium 134 mmol/L (135-145)
--- NOTE | 2022-05-16 10:31 | PC.NURSE ---
Antibiotics and fluids started late due to no IV pumps on the unit. Charge nurse made aware
[2022-05-16] MEDS: vancomycin HCL 1,250 MG in 0.9 % Sodium Chloride 250 ML 166.67 MG IV ×2 (11:00→23:05)
--- NOTE | 2022-05-16 11:48 | PHA.MEDREC ---
Addendum entered by Iva Morrow RPh 05/16/22 11:57: CONTACTED [facility]. PATIENT RELEASED ON 04/24/22. BUPROPION WAS DC'ED AND CELEXA WAS ADDED. LIST OBTAINED. Original Note: Pharmacy Consult ? Medication Reconciliation Pharmacy has completed the medication reconciliation.sPOKE WITH PATIENT WHO WAS VERY SLEEPY. PATIENT WAS ABLE TO TELL ME HE IS ON BUPROPION/TRAZODONE/RISPERDAL. THESE MEDS ALONG WITH HYDROXYZINE HAVE ALL BEEN RECENTLY FILLED AT [facility]. PATIENT STATES HE HAS NOT MEDICATIONS IN 4 OR MORE DAYS.
--- NOTE | 2022-05-16 12:22 | PHA.PROG ---
Admission Date/Time: May 16, 2022 09:37 Indication: other Weight in k.862 kg Adjusted body weight in K.2 kg [place] body weight in K.1 kg Obesity Dosing Indication % IBW: Serum Creatinine - Last 168 Hours 05/15/22 05/16/22 05/16/22 11:20 07:38 09:38 Creatinine 1.20 1.37 0.98 Estimated CrCl and GFR - Last 168 Hours 05/15/22 05/16/22 05/16/22 11:20 07:38 09:38 Estim Creat Clear Calc 106.8 93.6 130.8 Estimated GFR > 60 > 60 > 60 Vancomycin Loading Dose: 1250 mg + 750 mg = 2000 mg Current Vancomycin Dosing Regimen: 1250 mg Vancomycin Monitoring using AUC goal of 400 - 600 range with trough as surrogate marker: predicted auc 555 Date and Time for next Vancomycin Level to be drawn: trough 05/17/22 @2100 Pharmacist Comments on Vancomycin Plan: obese model used Vancomycin dosing will take advantage of [employer] as a clinical decision support tool that uses Bayesian modeling to calculate individual patient's pharmacokinetic parameters and forecast the patient's drug concentration time course with the target goal AUC 24 range of 400 - 600 mg/L/hr.
--- NOTE | 2022-05-16 12:35 | MHC.RECOVSUP ---
? Reason for consult Recovery Support o Current location: ED21 o Identified substance use concern: Heroin - Overdose - Support ? Intervention: o Community resources provided o Harm reduction discussion ? Plan: o Follow up tomorrow o Patient awaiting crisis evaluation o Patient to follow up with [facility] after discharge ? Additional information: Met with Patient .. we had a real good recovery talk.. 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 Started looking for ATS but patient is being admitted.. Patient on Care team Follow up List.
[2022-05-16] MEDS: Lactated Ringers 1,000 ML 150 ML IVCONT ×2 (12:46→19:17)
[2022-05-16] MEDS: vancomycin HCL 750 MG in 0.9 % Sodium Chloride 250 ML 265 MG IV (13:07)
--- NOTE | 2022-05-16 20:21 | PC.NURSE ---
assumed care of patient at 1900. LR running at 100ml/hr, new bag started. patient resting comfortably on stretcher, on cafeteria monitor. respirations even and unlabored, no apparent distress. call tian within reach. will continue to monitor
--- NOTE | 2022-05-17 01:45 | PC.NURSE ---
pt sleeping comfortably. wearing 3L O2 nasal cannula. O2 sat 98%. respirations even and unlabored, no apparent distress . on director cardiac. will continue to monitor
[2022-05-17] MEDS: Lactated Ringers 1,000 ML 150 ML IVCONT (04:44)
[2022-05-17 06:53] LABS: Hematocrit 33.1 % (42.0-52.0); Hemoglobin 11.1 g/dl (14.0-18.0); Mean Corpuscular HGB Conc 33.5 g/dl (31.0-36.0); Mean Corpuscular Volume 80.5 fL (80.0-98.0); Platelet Count 215 X10*3/uL (160-400); Red Blood Count 4.11 X10*6/uL (4.60-5.80); Red Cell Distribution Width 12.9 % (11.0-16.0); White Blood Count 12.3 X10*3/uL (4.8-10.8)
[2022-05-17 07:15] LABS: Creatinine Clr Calc Pharmacy 150.9; Estimated Glomerular Filt Rate > 60
[2022-05-17 07:39] VITALS: BP 129/65; PULSE 56; RESP 16; TEMP 36.6; O2SAT 98
[2022-05-17] MEDS: vancomycin HCL 1,250 MG in 0.9 % Sodium Chloride 250 ML 166.67 MG IV (10:05)
[2022-05-17 10:18] VITALS: BMI 37.5
[2022-05-17 12:01] VITALS: BP 139/71; PULSE 66; RESP 18; TEMP 36.2; O2SAT 95
--- NOTE | 2022-05-17 13:09 | HO.PM.IMPN ---
Subjective Subjective Date of Service: 05/18/22 Interval History: Patient is somnolent but arousable, offers no acute complaints, vitals are stable remains afebrile stable blood pressure and respiratory rate, no acute events overnight. Review of Systems Review of Systems: Yes Unobtainable due to mental status Physical Exam Vital Signs: Vital Signs: Last Vital Signs Temp 97.1 F 05/17/22 12:01 Pulse 66 05/17/22 12:01 Resp 18 05/17/22 12:01 BP 139/71 05/17/22 12:01 Pulse Ox 95 05/17/22 12:01 O2 Del Method 05/17/22 12:01 O2 Flow Rate 3 05/17/22 07:39 BMI result Body Mass Index 37.5 Const: Other: General somnolent but arousable,in no acute distress Anicteric sclera. Neck supple no JVD. CVS regular rate rhythm, Respiratory lungs clear to auscultation, no respiratory distress, no wheeze, no rhonchi. Gastrointestinal abdomen soft, nontender, bowel sounds audible, no guarding , no rigidity. Extremities no edema. Neuro moving all 4 extremity speech clear. Skin no rash Objective Data Active Medications Acetaminophen (Acetaminophen 325 Mg Tablet) 650 mg PO Q6H PRN PRN Reason: Pain, Mild (Pain Scale 1-3) Escitalopram Oxalate (Escitalopram Oxalate 10 Mg Tablet) 10 mg PO BEDTIME [facility] Lactated Ringer's (Lr) 1,000 mls @ 150 mls/hr IVCONT .Q6H40M [facility] Last Admin: 05/17/22 04:44 Dose: 150 mls/hr Documented By: HOPE Vancomycin HCl 1,250 mg/ (Sodium Chloride) 250 mls @ 166.667 mls/hr IV Q12H [facility] Last Infusion: 05/17/22 12:22 Dose: 0 mls/hr Documented By: TRU Melatonin (Melatonin 3 Mg Tablet) 6 mg PO BEDTIME PRN PRN Reason: Insomnia Pharmacy Consult (Consult Rx Vancomycin Dosing) 1 each MISCELLANE DAILY PRN PRN Reason: Consult order Sodium Chloride (0.9 % Sodium Chloride Flush 3 Ml Syringe) 3 ml IVFLUSH QSHIFT [facility] Last Admin: 05/17/22 08:45 Dose: Not Given Documented By: MOIRA Non-Admin Reason: IV Running Labs CBC & Chem 7: 05/18/22 05:09 05/18/22 05:09 Labs: Laboratory Results - last 24 hr 05/17/22 05/17/22 06:47 06:47 MCV 80.5 MCH 27.0 MCHC 33.5 RDW 12.9 Plt Count 215 D MPV 10.0 Absolute Nucleated RBC 0.000 Nucleated RBC % (auto) 0.0 Estim Creat Clear Calc 150.9 Estimated GFR > 60 Microbiology Microbiology Results: Microbiology 05/16/22 09:38 Blood Culture - Preliminary Blood - Venous No growth after 24 hours. 05/16/22 09:38 Blood Culture - Preliminary Blood - Venous No growth after 24 hours. Assessment and Plan (1) Leukocytosis: Status: Acute (2) ROSALBA (acute kidney injury): Status: Acute (3) Hyperkalemia: Status: Acute (4) Opioid overdose: Status: Acute (5) Polysubstance abuse: Status: Acute Plan 31 y/o with polysubstance abuse here with opioid overdose resulting in signficant? hypoxia, has leukocytosis and hyperkalemia Opioid overdose Recently discharged from [place] , history of recent detox admission, is being followed by therapists Remains somnolent but arousable s/p Narcan, concern of using in the hospital also, therefore will avoid visitors Denies IV drug use, no skin judd Seen by recovery support team patient wishes to go for long-term recovery program, Continue supportive care, to be re-evaluated by recovery team, waiting crisis eval ROSALBA--likely pre renal resolved Leukocytosis--likely reactive, WBC improved from 23.6 to 12.3, with no source of infection, no PNA on xray, UA negative, on IV vancomycin ,s/p Cefepime in ED. blood cultures x2 negative so far, blood cultures remain negative will DC antibiotics Hyperkalemia--Unclear etiology potassium normalized, follow BMP DVT prophylaxis low risk encourage ambulation once more awake alert Patient need continued inpatient hospitalization due to persistent somnolence related to opioid overdose being followed by care team waiting crisis eval Quality Stroke Does the patient have a stroke diagnosis?: No VTE Prior VTE?: No VTE Risk Level:: Medical - low VTE Device Contraindication: Treatment Not Indicated VTE Drug Contraindication: Treatment Not Indicated
[2022-05-17] MEDS: Acetaminophen 325 MG TABLET 650 MG PO (13:43)
[2022-05-17] MEDS: Lactated Ringers 1,000 ML 100 ML IVCONT ×2 (13:44→23:14)
[2022-05-17 15:14] VITALS: BP 155/80; PULSE 54; RESP 18; TEMP 37; O2SAT 98
[2022-05-17] MEDS: ondansetron HCL 4 MG/2 ML VIAL IVPUSH (15:56)
[2022-05-17] MEDS: LORazepam 0.5 MG TABLET PO (15:56)
[2022-05-17 18:56] VITALS: BP 159/90; PULSE 74; RESP 18; TEMP 37.1; O2SAT 97
[2022-05-17] MEDS: risperiDONE 1 MG TABLET PO (20:45)
[2022-05-17] MEDS: traZODone HCL 50 MG TABLET 150 MG PO (20:45)
[2022-05-17] MEDS: Escitalopram Oxalate 10 MG TABLET PO (20:45)
[2022-05-17] MEDS: hydrOXYzine HCL 25 MG TABLET 75 MG PO (20:45)
[2022-05-17 21:59] LABS: Vancomycin Trough 6.3 mcg/mL (10.0-20.0)
--- NOTE | 2022-05-17 22:22 | HE.PHANOTE ---
Vancomycin Dosing Addendum Patient's renal function is up today, crcl 150.9 from 130. Patients dose needs to be adjusted per rx insight. increased dose to 1500 mg Q12H. will get a level 05/18 @2100 to ensure efficacy vs safety. Predicted AUC 446 mg/L/hr.
[2022-05-17] MEDS: vancomycin HCL 1,500 MG in 0.9 % Sodium Chloride 500 ML 333.33 MG IV (23:17)
[2022-05-18] VITALS: BP 132/77; PULSE 77; RESP 18; TEMP 36.8; O2SAT 95
[2022-05-18 03:14] VITALS: BP 121/62; PULSE 59; RESP 18; TEMP 36.7; O2SAT 94
[2022-05-18 05:41] LABS: Hematocrit 35.6 % (42.0-52.0); Hemoglobin 11.9 g/dl (14.0-18.0); Mean Corpuscular HGB Conc 33.4 g/dl (31.0-36.0); Mean Corpuscular Hemoglobin 26.7 pg (27.0-33.0); Mean Platelet Volume 10.8 fL (9.4-12.4); Platelet Count 221 X10*3/uL (160-400); Red Blood Count 4.45 X10*6/uL (4.60-5.80); Red Cell Distribution Width 12.7 % (11.0-16.0); White Blood Count 10.5 X10*3/uL (4.8-10.8)
[2022-05-18 06:01] LABS: Creatinine Clr Calc Pharmacy 156.4; Estimated Glomerular Filt Rate > 60
[2022-05-18 07:27] VITALS: BP 133/68; PULSE 55; RESP 17; TEMP 36.4; O2SAT 98
[2022-05-18] MEDS: hydrOXYzine HCL 25 MG TABLET PO ×2 (08:05→11:00)
--- NOTE | 2022-05-18 10:21 | MHC.CM.PN ---
PERCY 05/18/22, EMR REVIEWED, PT ADMITTE W/OPIOD OVERDOSE, CM MET W/PT WHO REPORTS HE LIVES W/HIS PARENTS, IS INDEPENDENT W/CARE, DENIES USE OF DME/SERVICES, PT REPORTS HE MET W/RECOVERY TEAM AND IS PLANNING ON STARTING ON SUBOXONE AND WOULD LIKE TO RETURN HOME AND NOT GO TO AN INPT SA TX PROGRAM. PT VERIFIES HE DOES HAVE A PCP AT [facility] HOWEVER DOES NOT RECALL THE NAME, KRANTHI Parry AND PT EDUCATED ON AND DECLINE TO COMPLETE A HCP AT THIS TIME.
[2022-05-18 11:12] VITALS: BP 138/71; PULSE 76; RESP 16; TEMP 36.1; O2SAT 95
--- NOTE | 2022-05-18 11:26 | P.DS_ITS ---
DS: Providers Provider Date of Service: 05/18/22 Date of admission: 05/16/22 09:37 Primary care physician: Unknown Physician Consults: 05/15/22 06:42 Consult to Care Team Stat Comment: Reason for consultation: sude evaluation 05/16/22 07:43 BHN [Consult to Crisis] Stat Reason for consultation: Multiple Overdose very poor judgement,overdosing in the hospital bed as wel Has provider been notified: Yes 05/17/22 15:46 Addiction Medicine Routine Consulting Provider: Addiction Covering Reason for consultation: polysubstance /opiod overdose Has provider been notified: No DS: Diagnosis Discharge Diagnosis (1) Leukocytosis: Status: Acute (2) ROSALBA (acute kidney injury): Status: Acute (3) Hyperkalemia: Status: Acute (4) Opioid overdose: Status: Acute (5) Polysubstance abuse: Status: Acute DS: Summary Hospital Course Hospital Course: History of presenting illness Date of Service: 05/16/22 Chief Complaint: Overdose,? high WBC and hyperkalemia 31 year old? male with opiate abuse, frequent overdose, seen in ED 2 days earlier with heroin overdose and released. He presented yet again with an apparent overdose treated with Narcan, but while in the ED reportedly his father brought his Suboxone which he took? and later on was noted to be severe hyoxic again and unresponsive and given Narcan again. he admits to using dope before coming in.? Presently his awake and talking and but falls asleep easily, his on oxygen and O2 sat 99 on monitor. Additinally his labs now show WBC of 23 up from 14 yesterday and potassium is 6.2 with creatinine of 1.37. potassium day prior was normal at 4.7. He has no sings? or symptoms of infection. He's given Cefepime.? Utox = cocain, marijuana and Fentanyl, opiods. Hospital course 31 y/o with polysubstance abuse here with opioid overdose resulting in signficant? hypoxia, has leukocytosis and hyperkalemia Opioid overdose patient treated with Narcan with good response patient recently relapsed on drugs after being recently discharged from [facility] custod[facility], patient seen by care team as well as addiction team since at present he is doing better, awake, alert answering questions appropriately with stable vitals, he is being discharged home to follow up at [facility] [place] for Suboxone, patient is being followed by therapist and is supposed to be seen by psychiatrist, ROSALBA--likely pre renal resolved with IV fluids Leukocytosis--likely reactive, WBC improved from 23.6 to normal range, no source of infection found, no PNA on chest xray, UA negative, initially empirically treated with IV vancomycin but since blood cultures are negative and no source of infection found antibiotic discontinued patient denies use of IV drug use Hyperkalemia--Unclear etiology potassium normalized, follow BMP Time Spent with Patient Time attestation: Total time spent providing and/or coordinating discharge services: Discharge coordination time: Greater than 30 minutes Quality: Safe Use of Opioids Does Pt have an Active Cancer Diagnosis on the Problem List?: No Quality: Stroke Does the patient have a stroke diagnosis?: No Physical Exam Vital Signs: Vital Signs: Last Vital Signs Temp 97.0 F 05/18/22 11:12 Pulse 76 05/18/22 11:12 Resp 16 05/18/22 11:12 BP 138/71 05/18/22 11:12 Pulse Ox 95 05/18/22 11:12 O2 Del Method 05/18/22 11:12 O2 Flow Rate 3 05/17/22 07:39 BMI result Body Mass Index 37.5 Const: Other: General awake alert x3, in no acute distress. Neck supple, no JVD. CVS regular rate rhythm, Respiratory lungs clear to auscultation, no respiratory distress, no wheeze, no rhonchi. Gastrointestinal abdomen soft, nontender, bowel sounds audible, Extremities no edema. Neuro nonfocal , speech clear. Skin no rash Psych appropriate affect DS: Data Data Completed and Pending Labs on day of discharge: Laboratory Results - last 24 hr 05/17/22 05/18/22 05/18/22 21:11 05:09 05:09 WBC 10.5 RBC 4.45 L Hgb 11.9 L Hct 35.6 L MCV 80.0 MCH 26.7 L MCHC 33.4 RDW 12.7 Plt Count 221 MPV 10.8 Absolute Nucleated RBC 0.000 Nucleated RBC % (auto) 0.0 Creatinine 0.82 Estim Creat Clear Calc 156.4 Estimated GFR > 60 Vancomycin Trough 6.3 L Preliminary micro results at discharge 05/16/22 09:38 Blood Culture - Preliminary Blood - Venous No growth after 24 hours. 05/16/22 09:38 Blood Culture - Preliminary Blood - Venous No growth after 24 hours. Discharge Plan Discharge Patient Disposition: Home, Self-Care Discharge Diagnosis: Opioid overdose Referrals: Physician,Unknown J [Primary Care Provider] - 1 Week Discharge Medications: Continued trazodone 150 mg tablet 1 tab PO BEDTIME risperidone [Risperdal] 1 mg tablet 1 tab PO BEDTIME hydroxyzine pamoate 25 mg capsule 25 mg PO DAILY@0800,1200 hydroxyzine pamoate 25 mg capsule 3 cap PO BEDTIME buprenorphine-naloxone [Suboxone] 8-2 mg film 2 strip sublingual DAILY naloxone 4 mg/actuation [place],Non-Aerosol 4 mg INTRANASAL Q2M PRN (Reason: OVERDOSE) Rx Instructions: spray 1 dose into ONE nostril; alternate nostrils w each dose until help arrives citalopram 20 mg tablet 1 tab PO BEDTIME Discharge Orders: Discharge Order (Routine); Ordered 05/18/22 Ordered By: Urmila Sampson Diet: Advance to usual diet Activity on Discharge: As tolerated Stand Alone Forms: Patient Portal Discharge page Care Plan Goals: follow up at suboxone clinic and with therapist, strongly recommend to abstain from illicit drug use Health Concerns: substance abuse strongly recommend outpt follow up with therapist and psyhiatrist Plan of Treatment: Take all home medications as before and follow-up with primary care physician Assessment: As per discharge summary
--- NOTE | 2022-05-18 13:10 | PM.EVENT ---
Event Note Date of Service: 05/18/22 Event Note: Addiction consult Please see RSRN note
--- NOTE | 2022-05-18 13:36 | MHC.RECOVRN ---
Met with pt in 345 after consult placed to Addiction Medicine after overdose. Upon entering room, pt laying in bed, awake, alert, easily engages in conversation. Pt reports being released from skilled nursing approx 2 weeks ago. While in skilled nursing, pt was given Suboxone which patient found helpful and would like to continue. Pt began opiate use 5 years ago. Pt reports 4 overdoses since being released, using 1 bag IN, each time. Pt currently has stable housing and transportation- would like to connect with the [facility] for continued OUD treatment. T/w spoke with Em in the [facility], intake appt made for today at 3PM. Provider and RN aware.
--- NOTE | 2022-05-18 14:04 | MHC.CM.PN ---
pt medically cleared for d/c today and will discharge to 3pm appt at the [facility] for suboxone intake. pt to arrange transport.
== END 2022-05-18 14:52 | disposition home or self-care (01) ==
LOC: HO.ED 14:23 → HO.EDOVER 05-16 09:46 → HO.S3 05-17 08:40
PROVIDERS: Emergency Medicine; Physician Assistant Medical; Admitting Provider Internal Medicine; Emergency Provider Emergency Medicine; PCP Internal Medicine; Visit Provider Hospitalist
DX: T40.2X1A Poisoning by other opioids, accidental (unintentional), initial encounter (principal); R40.20 Unspecified coma; Y92.230 Patient room in hospital as the place of occurrence of the external cause; F19.10 Other psychoactive substance abuse, uncomplicated; F11.20 Opioid dependence, uncomplicated; E87.5 Hyperkalemia; N17.9 Acute kidney failure, unspecified; D72.829 Elevated white blood cell count, unspecified; R11.2 Nausea with vomiting, unspecified; F17.210 Nicotine dependence, cigarettes, uncomplicated; Z20.822 Contact with and (suspected) exposure to COVID-19; Z79.899 Other long term (current) drug therapy
CPT/HCPCS: 36415; 71045; 80048; 80053; 80202; 80307; 81001; 82550; 82565; 82803; 82947; 83605; 85025; 85027; 87040; 87635; 93005; 94640; 96361; 96365; 96366; 96367; 96374; 96375; 96376; 99218; 99285; J0692; J2405; J3370

== ENCOUNTER → 2022-05-18 14:50 | Outpatient (BNVA) | payer OTHER, SELFPAY | PROVIDERS: Visit Provider Nurse Practitioner Psychiatric/Mental Health | DX: F11.20 Opioid dependence, uncomplicated (principal) | CPT/HCPCS: 99202; 99212 ==

== ENCOUNTER 2022-05-25 15:02 | Outpatient (REF) | payer OTHER, SELFPAY ==
[2022-05-25 16:26] LABS: Alanine Aminotransferase 24 U/L (0-40); Albumin Level 4.5 g/dL (3.5-5.0); Alkaline Phosphatase 111 U/L (39-117); Aspartate Amino Transferase 15 U/L (5-37); Bilirubin Direct < 0.2 mg/dL (0.0-0.5); Bilirubin Total 0.4 mg/dL (0.0-1.0); Total Protein 7.4 g/dL (6.5-8.0)
== END 2022-05-25 15:03 | disposition home or self-care (01) ==
LOC: HO.LAB 15:02
PROVIDERS: Visit Provider Nurse Practitioner Psychiatric/Mental Health
DX: F11.20 Opioid dependence, uncomplicated (principal); Z51.81 Encounter for therapeutic drug level monitoring; Z79.899 Other long term (current) drug therapy
CPT/HCPCS: 36415; 80076; 80305; 99212

== ENCOUNTER → 2022-06-08 13:12 | Outpatient (BNVA) | payer OTHER, SELFPAY | PROVIDERS: Visit Provider Nurse Practitioner Psychiatric/Mental Health | DX: F11.20 Opioid dependence, uncomplicated (principal) | CPT/HCPCS: 99212 ==

== ENCOUNTER → 2022-06-22 14:04 | Outpatient (BNVA) | payer OTHER, SELFPAY | PROVIDERS: Visit Provider Nurse Practitioner Psychiatric/Mental Health | DX: F11.20 Opioid dependence, uncomplicated (principal); F14.10 Cocaine abuse, uncomplicated | CPT/HCPCS: 80305; 99212 ==

== ENCOUNTER → 2022-07-06 14:51 | Outpatient (BNVA) | payer OTHER, SELFPAY | PROVIDERS: Visit Provider Nurse Practitioner Psychiatric/Mental Health | DX: F11.20 Opioid dependence, uncomplicated (principal); F14.10 Cocaine abuse, uncomplicated; Z79.899 Other long term (current) drug therapy; Z51.81 Encounter for therapeutic drug level monitoring | CPT/HCPCS: 80305; 99212 ==

== ENCOUNTER → 2022-07-20 14:57 | Outpatient (BNVA) | payer OTHER, SELFPAY | PROVIDERS: Visit Provider Nurse Practitioner Psychiatric/Mental Health | DX: F11.20 Opioid dependence, uncomplicated (principal); F14.10 Cocaine abuse, uncomplicated; F41.9 Anxiety disorder, unspecified | CPT/HCPCS: 80305; 99212 ==

== ENCOUNTER → 2022-07-27 15:06 | Outpatient (BNVA) | payer OTHER, SELFPAY | PROVIDERS: Visit Provider Nurse Practitioner Psychiatric/Mental Health | DX: Z51.81 Encounter for therapeutic drug level monitoring (principal); F11.20 Opioid dependence, uncomplicated; F14.10 Cocaine abuse, uncomplicated | CPT/HCPCS: 80305; 99212 ==

== ENCOUNTER → 2022-08-10 15:01 | Outpatient (BNVA) | payer OTHER, SELFPAY | PROVIDERS: Visit Provider Nurse Practitioner Psychiatric/Mental Health | DX: F11.20 Opioid dependence, uncomplicated (principal); F14.10 Cocaine abuse, uncomplicated; F41.9 Anxiety disorder, unspecified; F32.A Depression, unspecified; Z79.899 Other long term (current) drug therapy | CPT/HCPCS: 80305; 99212 ==

== ENCOUNTER → 2022-08-23 15:33 | Outpatient (BNVA) | payer OTHER, SELFPAY | PROVIDERS: Visit Provider Nurse Practitioner Psychiatric/Mental Health | DX: F11.20 Opioid dependence, uncomplicated (principal); F14.20 Cocaine dependence, uncomplicated; F12.20 Cannabis dependence, uncomplicated; F17.210 Nicotine dependence, cigarettes, uncomplicated; F41.9 Anxiety disorder, unspecified; F32.A Depression, unspecified; Z51.81 Encounter for therapeutic drug level monitoring; Z79.899 Other long term (current) drug therapy | CPT/HCPCS: 80305; 99212 ==

== ENCOUNTER → 2022-09-29 15:21 | Outpatient (BNVA) | payer OTHER, SELFPAY | PROVIDERS: Visit Provider Nurse Practitioner Psychiatric/Mental Health | DX: F11.20 Opioid dependence, uncomplicated (principal) | CPT/HCPCS: 80305 ==

== ENCOUNTER → 2022-10-11 15:04 | Outpatient (BNVA) | payer OTHER, SELFPAY | PROVIDERS: Visit Provider Nurse Practitioner Psychiatric/Mental Health | DX: Z51.81 Encounter for therapeutic drug level monitoring (principal); F11.20 Opioid dependence, uncomplicated; F32.A Depression, unspecified; F14.10 Cocaine abuse, uncomplicated; F41.9 Anxiety disorder, unspecified | CPT/HCPCS: 80305; 99212 ==

== ENCOUNTER → 2022-11-15 15:14 | Outpatient (BNVA) | payer OTHER, SELFPAY | PROVIDERS: Visit Provider Nurse Practitioner Psychiatric/Mental Health | DX: F11.20 Opioid dependence, uncomplicated (principal); F32.A Depression, unspecified; F14.10 Cocaine abuse, uncomplicated; F41.9 Anxiety disorder, unspecified; Z79.899 Other long term (current) drug therapy | CPT/HCPCS: 99212 ==

== ENCOUNTER → 2022-12-13 14:57 | Outpatient (BNVA) | payer OTHER, SELFPAY | PROVIDERS: Visit Provider Nurse Practitioner Psychiatric/Mental Health | DX: Z51.81 Encounter for therapeutic drug level monitoring (principal); F11.20 Opioid dependence, uncomplicated; F14.10 Cocaine abuse, uncomplicated | CPT/HCPCS: 99212 ==

== ENCOUNTER 2023-01-17 15:27 | Outpatient (AMB) | payer MEDICAID, SELFPAY ==
--- NOTE | 2023-01-17 15:28 | A.OFFVIS_ITS ---
Intake Vital Signs 01/17/23 15:34 BP 108/80 Blood Pressure Location Lt radial Position Sitting Pulse 78 Pulse Source Pulse Oximeter Pulse Oximetry (%) 98 Oxygen Delivery Method Room Air Intake Visit Reasons: MAT Visit Intake Note: the patient presents for a mat visit Equal Opportunity Director Required: No Allergies loratadine [From CLARITIN] Allergy (Unknown, Unverified 01/17/23 15:36) UNK tetracycline [TETRACYCLINE] Allergy (Unknown, Unverified 01/17/23 15:36) HIVES Do you need a note to return to daycare/school/sports/work: No HPI MAT Visit HPI Details Patient presents for OUD treatment follow up Currently prescribed Suboxone 20mg QD--doing well with recovery. 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 Possibly going to [place] at the end of the summer Refills on all medications Occasional constipation --OTC remedies PFSH Medical History No known health problems Polysubstance abuse Polysubstance abuse Social History Household Members: Family Housing: Apartment Do you presently have visiting nurse or other home services: No Alcohol intake: current Alcohol intake frequency: other Alcohol type: beer Patient Tobacco Use Status: Current someday Tobacco user Tobacco use type: Cigarette Substance Use Type: Crack/Cocaine, Heroin and Marijuana service: No Current occupational status: unemployed Review of Systems Const Reports as per HPI and Reports no additional complaints Physical Exam Vital Signs: Last Vital Signs Pulse 78 01/17/23 15:34 BP 108/80 01/17/23 15:34 Pulse Ox 98 01/17/23 15:34 Oxygen Delivery Method Room Air 01/17/23 15:34 Const General: cooperative and healthy appearing Nutritional Appearance: well nourished Limitations: no limitations Psych Appearance: well kempt Speech and movement: Clear speech present Affect: normal affect Attitude: cooperative Thought process: Normal thought process present Thought content: Normal thought content present Insight: Good insight present (Psych) Judgement: Good judgement present (Psych) Assessment & Plan Assessment & Plan (1) Opioid use disorder, severe, dependence: Code(s): F11.20 - Opioid dependence, uncomplicated Plan: * continue suboxone at current dose * relapse prevention discussion (2) Depression: Code(s): F32.A - Depression, unspecified Plan: * no changes to current regimen * medications refiled Medications: Refilled buprenorphine-naloxone 4-1 mg (Suboxone) 1 film sublingual DAILY 28 ea 0RF buprenorphine-naloxone 8-2 mg (Suboxone) 2 film sublingual DAILY 56 ea 0RF bupropion HCl 100 mg PO BID 60 tabs 1RF citalopram 20 mg PO DAILY 30 tabs 1RF hydroxyzine pamoate 25 mg PO .BID PRN 60 caps 1RF anxiety risperidone 1 mg PO BEDTIME 30 tabs 1RF topiramate 50 mg (2 x 25 mg) PO BID 120 tabs 1RF trazodone 150 mg PO BEDTIME PRN 30 tabs 1RF sleep buprenorphine-naloxone 4-1 mg (Suboxone) 1 film sublingual DAILY 28 ea 0RF buprenorphine-naloxone 8-2 mg (Suboxone) 2 film sublingual DAILY 56 ea 0RF Coding Level of Care Code Est Pt Level 3 (41354) Diagnoses Opioid use disorder, severe, dependence F11.20 Depression F32.A
[2023-01-17 15:34] VITALS: BP 108/80; PULSE 78; O2SAT 98
== END 2023-01-17 16:16 | disposition home or self-care (01) ==
LOC: HO.HCC 15:27
PROVIDERS: Visit Provider Nurse Practitioner Psychiatric/Mental Health
DX: F11.20 Opioid dependence, uncomplicated (principal); F32.A Depression, unspecified
CPT/HCPCS: 99213

== ENCOUNTER → 2023-01-17 15:27 | Outpatient (BNVA) | payer OTHER, SELFPAY | PROVIDERS: Visit Provider Nurse Practitioner Psychiatric/Mental Health | DX: F11.20 Opioid dependence, uncomplicated (principal); F32.A Depression, unspecified | CPT/HCPCS: 99213 ==

== ENCOUNTER 2023-02-22 15:10 | Outpatient (AMB) | payer MEDICAID, SELFPAY ==
--- NOTE | 2023-02-22 15:14 | A.OFFVIS_ITS ---
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 Machine Operator Helper Required: No Allergies loratadine [From CLARITIN] Allergy (Unknown, Unverified 02/22/23 15:16) UNK tetracycline [TETRACYCLINE] Allergy (Unknown, Unverified 02/22/23 15:16) HIVES Medication List - Last Reconciled 02/22/23 by Lissa Marcelino CNP buprenorphine-naloxone 4-1 mg (Suboxone) 1 film sublingual DAILY buprenorphine-naloxone 8-2 mg (Suboxone) 2 film sublingual DAILY bupropion HCl 100 mg PO BID citalopram 20 mg PO DAILY hydroxyzine pamoate 25 mg PO .BID PRN naloxone 4 mg/actuation 4 mg intranasal Q2M PRN risperidone 1 mg PO BEDTIME topiramate 50 mg (2 x 25 mg) PO BID trazodone 150 mg PO BEDTIME PRN Do you need a note to return to daycare/school/sports/work: No HPI MAT Visit HPI Details Patient presents for follow up Since last visit, patient reports overdose requiring narcan 3 days hospitalized at [facility] with suboxone Still taking all psychiatric medications Cocaine use once every 2 weeks 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 [employer] Medical History No known health problems Polysubstance abuse Polysubstance abuse Social History Household Members: Family Housing: Apartment Do you presently have visiting nurse or other home services: No Alcohol intake: current Alcohol intake frequency: other Alcohol type: beer Patient Tobacco Use Status: Current someday Tobacco user Tobacco use type: Cigarette Substance Use Type: Crack/Cocaine, Heroin and Marijuana service: No Current occupational status: unemployed Review of Systems Const Reports as per HPI and Reports no additional complaints Physical Exam Vital Signs: Last Vital Signs Pulse 89 02/22/23 15:15 BP 114/72 02/22/23 15:15 Pulse Ox 96 02/22/23 15:15 Oxygen Delivery Method Room Air 02/22/23 15:15 Const General: cooperative, healthy appearing and anxious Psych Appearance: well kempt Speech and movement: Clear speech present Affect: Anxious affect present (slightly guarded ) Thought process: Normal thought process present Insight: Fair insight present (Psych) Assessment & Plan Assessment & Plan (1) Opioid use disorder, severe, dependence: Code(s): F11.20 - Opioid dependence, uncomplicated Plan: * continue suboxone at current dose * risk reduction discussion * follow up one week Medications: Refilled buprenorphine-naloxone 4-1 mg (Suboxone) 1 film sublingual DAILY 7 ea 0RF buprenorphine-naloxone 8-2 mg (Suboxone) 2 film sublingual DAILY 15 ea 0RF hydroxyzine pamoate 25 mg PO .BID PRN 60 caps 1RF anxiety Coding Level of Care Code Est Pt Level 4 (98001) Diagnoses Opioid use disorder, severe, dependence F11.20
[2023-02-22 15:15] VITALS: BP 114/72; PULSE 89; O2SAT 96
== END 2023-02-22 15:52 | disposition home or self-care (01) ==
LOC: HO.HCC 15:10
PROVIDERS: Visit Provider Nurse Practitioner Psychiatric/Mental Health
DX: F11.20 Opioid dependence, uncomplicated (principal)
CPT/HCPCS: 99214

== ENCOUNTER → 2023-02-22 15:10 | Outpatient (BNVA) | payer OTHER, SELFPAY | PROVIDERS: Visit Provider Nurse Practitioner Psychiatric/Mental Health | DX: F11.20 Opioid dependence, uncomplicated (principal) | CPT/HCPCS: 99212; 99214 ==

== ENCOUNTER 2023-03-02 15:10 | Outpatient (AMB) | payer MEDICAID, SELFPAY ==
--- NOTE | 2023-03-02 15:11 | A.OFFVIS_ITS ---
Intake Vital Signs 03/02/23 15:14 BP 108/70 Blood Pressure Location Lt radial Position Sitting Pulse 81 Pulse Source Pulse Oximeter Pulse Oximetry (%) 98 Oxygen Delivery Method Room Air Intake Visit Reasons: MAT Visit Intake Note: the patient presents for a mat visit Cotton Classer Required: No Allergies loratadine [From CLARITIN] Allergy (Unknown, Unverified 03/02/23 15:15) UNK tetracycline [TETRACYCLINE] Allergy (Unknown, Unverified 03/02/23 15:15) HIVES Do you need a note to return to daycare/school/sports/work: No HPI MAT Visit HPI Details Patient presents for follow up Currently prescribed Suboxone 20mg daily Positive week with his children, spent time in [place] No concerns at this time [facility] Medical History No known health problems Polysubstance abuse Polysubstance abuse Social History Household Members: Family Housing: Apartment Do you presently have visiting nurse or other home services: No Alcohol intake: current Alcohol intake frequency: other Alcohol type: beer Patient Tobacco Use Status: Current someday Tobacco user Tobacco use type: Cigarette Substance Use Type: Crack/Cocaine, Heroin and Marijuana service: No Current occupational status: unemployed Review of Systems Const Reports as per HPI and Reports no additional complaints Physical Exam Vital Signs: Last Vital Signs Pulse 81 03/02/23 15:14 BP 108/70 03/02/23 15:14 Pulse Ox 98 03/02/23 15:14 Oxygen Delivery Method Room Air 03/02/23 15:14 Const General: cooperative and healthy appearing Psych Appearance: well kempt Speech and movement: Clear speech present Thought process: Normal thought process present Insight: Fair insight present (Psych) Assessment & Plan Assessment & Plan (1) Opioid use disorder, severe, dependence: Code(s): F11.20 - Opioid dependence, uncomplicated Plan: * continue suboxone at current dose * risk reduction discussion * medications refilled (2) Cocaine use disorder: Code(s): F14.10 - Cocaine abuse, uncomplicated Medications: Refilled citalopram 20 mg PO DAILY 30 tabs 1RF bupropion HCl 100 mg PO BID 60 tabs 1RF risperidone 1 mg PO BEDTIME 30 tabs 1RF topiramate 50 mg (2 x 25 mg) PO BID 120 tabs 1RF trazodone 150 mg PO BEDTIME PRN 30 tabs 1RF sleep buprenorphine-naloxone 4-1 mg (Suboxone) 1 film sublingual DAILY 21 ea 0RF buprenorphine-naloxone 8-2 mg (Suboxone) 2 film sublingual DAILY 42 ea 0RF Coding Level of Care Code Est Pt Level 3 (51984) Diagnoses Opioid use disorder, severe, dependence F11.20 Cocaine use disorder F14.10
[2023-03-02 15:14] VITALS: BP 108/70; PULSE 81; O2SAT 98
== END 2023-03-02 15:27 | disposition home or self-care (01) ==
LOC: HO.HCC 15:10
PROVIDERS: Visit Provider Nurse Practitioner Psychiatric/Mental Health
DX: F11.20 Opioid dependence, uncomplicated (principal); F14.10 Cocaine abuse, uncomplicated
CPT/HCPCS: 99213

== ENCOUNTER → 2023-03-02 15:10 | Outpatient (BNVA) | payer OTHER, SELFPAY | PROVIDERS: Visit Provider Nurse Practitioner Psychiatric/Mental Health | DX: F11.20 Opioid dependence, uncomplicated (principal); F14.10 Cocaine abuse, uncomplicated | CPT/HCPCS: 99212; 99213 ==

== ENCOUNTER 2023-03-23 14:49 | Outpatient (AMB) | payer MEDICAID, SELFPAY ==
--- NOTE | 2023-03-23 14:53 | A.OFFVIS_ITS ---
Intake Vital Signs 03/23/23 15:00 BP 104/70 Blood Pressure Location Lt radial Position Sitting Pulse 82 Pulse Source Pulse Oximeter Pulse Oximetry (%) 96 Oxygen Delivery Method Room Air Intake Visit Reasons: MAT Visit Intake Note: the patient presents for a mat visit Probation And Patrol Agent Required: No Allergies loratadine [From CLARITIN] Allergy (Unknown, Unverified 03/23/23 14:54) UNK tetracycline [TETRACYCLINE] Allergy (Unknown, Unverified 03/23/23 14:54) HIVES Do you need a note to return to daycare/school/sports/work: No HPI MAT Visit HPI Details Pt presents for OUD treatment follow up Currently being prescribed 20mg QD Denies any side effects related to medication Reports being bored at home --no structure during the day Working on getting his license [facility] Medical History No known health problems Polysubstance abuse Polysubstance abuse Social History Household Members: Family Housing: Apartment Do you presently have visiting nurse or other home services: No Alcohol intake: current Alcohol intake frequency: other Alcohol type: beer Patient Tobacco Use Status: Current someday Tobacco user Tobacco use type: Cigarette Substance Use Type: Crack/Cocaine, Heroin and Marijuana service: No Current occupational status: unemployed Review of Systems Const Reports as per HPI and Reports no additional complaints Physical Exam Vital Signs: Last Vital Signs Pulse 82 03/23/23 15:00 BP 104/70 03/23/23 15:00 Pulse Ox 96 03/23/23 15:00 Oxygen Delivery Method Room Air 03/23/23 15:00 Const General: cooperative and healthy appearing Psych Appearance: well kempt Speech and movement: Clear speech present Thought process: Normal thought process present Insight: Fair insight present (Psych) Results AMB 14 Panel Urine Drug Screen Urine Marijuana (THC) Negative Last Edit by Kelly Fajardo CMA on 03/23/23 15:01 Urine Cocaine Positive Last Edit by Kelly Fajardo CMA on 03/23/23 15:01 Urine Morphine Negative Last Edit by Kelly Fajardo CMA on 03/23/23 15:01 Urine Methamphetamine Negative Last Edit by Kelly Fajardo CMA on 03/23/23 15:01 Urine Amphetamine Negative Last Edit by Kelly Fajardo CMA on 03/23/23 15:0 1 Urine Benzodiazepine Negative Last Edit by Kelly Fajardo CMA on 03/23/23 15:01 Urine Barbiturates Negative Last Edit by Kelly Fajardo CMA on 03/23/23 15: 01 Urine Methadone Negative Last Edit by Kelly Fajardo CMA on 03/23/23 15:01 Urine Buprenorphine Positive Last Edit by Kelly Fajardo CMA on 03/23/23 15 :01 Urine Tricyclic Antidepressant Negative Last Edit by Kelly Fajardo CMA on 03/23/23 15:01 Urine MDMA Negative Last Edit by Kelly Fajardo CMA on 03/23/23 15:01 Urine Oxycodone Negative Last Edit by Kelly Fajardo CMA on 03/23/23 15:01 Urine Phencyclidine Negative Last Edit by Kelly Fajardo CMA on 03/23/23 15 :01 Urine Propoxyphene Negative Last Edit by Kelly Fajardo CMA on 03/23/23 15: 01 Results Reviewed Results Reviewed: Laboratory Last Values POC Urine Buprenorphine Positive 03/23/23 14:55 POC Urine Morphine Negative 03/23/23 14:55 POC Urine Oxycodone Negative 03/23/23 14:55 POC Urine Methadone Negative 03/23/23 14:55 POC Urine Propoxyphene Negative 03/23/23 14:55 POC Urine Barbiturates Negative 03/23/23 14:55 POC U Tricyclic Antidpr Negative 03/23/23 14:55 POC Urine PCP Negative 03/23/23 14:55 POC Ur Amphetamines Negative 03/23/23 14:55 POC Ur Methamphetamine Negative 03/23/23 14:55 POC Urine MDMA Negative 03/23/23 14:55 POC Ur Benzodiazepine Negative 03/23/23 14:55 POC Urine Cocaine Positive 03/23/23 14:55 POC Ur Marijuana (THC) Negative 03/23/23 14:55 Assessment & Plan Assessment & Plan (1) Opioid use disorder, severe, dependence: Code(s): F11.20 - Opioid dependence, uncomplicated Plan: * continue suboxone at current dose * risk reduction discussion * medications refilled (2) Cocaine use disorder: Code(s): F14.10 - Cocaine abuse, uncomplicated Orders: Orders AMB 14 Panel Urine Drug Screen Today Z51.81 - Encounter for therapeutic drug level monitoring Medications: Refilled buprenorphine-naloxone 4-1 mg (Suboxone) 1 film sublingual DAILY 22 ea 0RF buprenorphine-naloxone 8-2 mg (Suboxone) 2 film sublingual DAILY 43 ea 0RF Coding Level of Care Code Est Pt Level 3 (45922) Diagnoses Opioid use disorder, severe, dependence F11.20 Cocaine use disorder F14.10
[2023-03-23 15:00] VITALS: BP 104/70; PULSE 82; O2SAT 96
== END 2023-03-23 15:19 | disposition home or self-care (01) ==
LOC: HO.HCC 14:49
PROVIDERS: Visit Provider Nurse Practitioner Psychiatric/Mental Health
DX: F11.20 Opioid dependence, uncomplicated (principal); F14.10 Cocaine abuse, uncomplicated; Z51.81 Encounter for therapeutic drug level monitoring
CPT/HCPCS: 99213

== ENCOUNTER → 2023-03-23 14:49 | Outpatient (BNVA) | payer OTHER, SELFPAY | PROVIDERS: Visit Provider Nurse Practitioner Psychiatric/Mental Health | DX: F11.20 Opioid dependence, uncomplicated (principal); F14.20 Cocaine dependence, uncomplicated; F12.20 Cannabis dependence, uncomplicated; Z51.81 Encounter for therapeutic drug level monitoring; Z79.899 Other long term (current) drug therapy | CPT/HCPCS: 80305; 99212 ==

== ENCOUNTER → 2023-06-21 14:59 | Outpatient (BNVA) | payer OTHER, SELFPAY | PROVIDERS: Visit Provider Nurse Practitioner Psychiatric/Mental Health | DX: F11.20 Opioid dependence, uncomplicated (principal); F14.10 Cocaine abuse, uncomplicated | CPT/HCPCS: 99212 ==

== ENCOUNTER 2023-06-21 15:18 | Outpatient (AMB) | payer OTHER, SELFPAY ==
--- NOTE | 2023-06-21 15:00 | MHC.AM.SUB ---
Intake Vital Signs 06/21/23 15:03 BP 124/72 Blood Pressure Location Lt radial Position Sitting Pulse 89 Pulse Source Pulse Oximeter Pulse Oximetry (%) 98 Oxygen Delivery Method Room Air Intake Visit Reasons: mat visit Intake Note: the patient presents for a mat visit Assisted Living Executive Director Required: No Allergies loratadine [From CLARITIN] Allergy (Unknown, Unverified 06/21/23 15:04) UNK tetracycline [TETRACYCLINE] Allergy (Unknown, Unverified 06/21/23 15:04) HIVES Medication List - Last Reconciled 06/21/23 by Lissa Marcelino CNP buprenorphine ER (Sublocade) 300 mg (1.5 mL) subcut ONCE bupropion HCl 100 mg PO BID citalopram 20 mg PO DAILY naloxone 4 mg/actuation 4 mg intranasal Q2M PRN risperidone 1 mg PO BEDTIME topiramate 50 mg PO BID trazodone 150 mg PO BEDTIME PRN Do you need a note to return to daycare/school/sports/work: No HPI mat visit HPI Details Patient presents for follow up as a walk in [place] Started on Sublocade while there Engaged in program called [facility] Citalopram increased to 40mg and Trazodone increased to 200mg Would like a referral to a coach driver Discussed crack cocaine use. Patient reporting some cravings Reviewed strategies to address this, including restarting topomax which he found helpful [facility] Medical History No known health problems Polysubstance abuse Polysubstance abuse Social History Household Members: Family Housing: Apartment Do you presently have visiting nurse or other home services: No Alcohol intake: current Alcohol intake frequency: other Alcohol type: beer Patient Tobacco Use Status: Current someday Tobacco user Tobacco use type: Cigarette Substance Use Type: Crack/Cocaine, Heroin and Marijuana service: No Current occupational status: unemployed Review of Systems Const Reports as per HPI Physical Exam Vital Signs: Last Vital Signs Pulse 89 06/21/23 15:03 BP 124/72 06/21/23 15:03 Pulse Ox 98 06/21/23 15:03 Oxygen Delivery Method Room Air 06/21/23 15:03 Const General: cooperative, healthy appearing and no acute distress Nutritional Appearance: overweight Orientation/consciousness: patient oriented x3 Limitations: no limitations Neuro General: patient oriented x3 Assessment & Plan Assessment & Plan (1) Opioid use disorder, severe, dependence: Code(s): F11.20 - Opioid dependence, uncomplicated Plan: next sublocade injection ordered follow up 2 weeks (2) Cocaine use disorder: Code(s): F14.10 - Cocaine abuse, uncomplicated Plan: refilled topomax risk reduction discussion Medications: New buprenorphine ER (Sublocade) 300 mg (1.5 mL) subcut ONCE 1.5 mL 0RF topiramate 50 mg PO BID 60 tabs 0RF Discontinued buprenorphine-naloxone 4-1 mg (Suboxone) Discontinued Reason: Patient no longer taking 1 film sublingual DAILY 22 ea 0RF buprenorphine-naloxone 8-2 mg (Suboxone) Discontinued Reason: Patient no longer taking 2 film sublingual DAILY 43 ea 0RF topiramate Discontinued Reason: Doctor's Order 50 mg (2 x 25 mg) PO BID 120 tabs 1RF Coding Level of Care Code Est Pt Level 3 (80645) Diagnoses Opioid use disorder, severe, dependence F11.20 Cocaine use disorder F14.10
[2023-06-21 15:03] VITALS: BP 124/72; PULSE 89; O2SAT 98
== END 2023-06-21 15:35 | disposition home or self-care (01) ==
PROVIDERS: Visit Provider Nurse Practitioner Psychiatric/Mental Health
DX: F11.20 Opioid dependence, uncomplicated (principal); F14.10 Cocaine abuse, uncomplicated
CPT/HCPCS: 99213

== ENCOUNTER 2023-07-05 13:04 | Outpatient (AMB) | payer OTHER, SELFPAY ==
--- NOTE | 2023-07-05 13:05 | MHC.AM.SUB ---
Intake Vital Signs 07/05/23 13:08 BP 110/78 Blood Pressure Location Lt radial Position Sitting Pulse 89 Pulse Source Pulse Oximeter Pulse Oximetry (%) 96 Oxygen Delivery Method Room Air Intake Visit Reasons: MAT Visit/Sub Inj Intake Note: the patient presents for a sub inj K 9 Handler/ Deputy Required: No Allergies loratadine [From CLARITIN] Allergy (Unknown, Unverified 07/05/23 13:09) UNK tetracycline [TETRACYCLINE] Allergy (Unknown, Unverified 07/05/23 13:09) HIVES Do you need a note to return to daycare/school/sports/work: No HPI MAT Visit/Sub Inj HPI Details Patent presents for follow up and Sublocade injection Reports recurrence of cocaine use last week Discussed triggers --c[facility], [facility] Medical History No known health problems Polysubstance abuse Polysubstance abuse Social History Household Members: Family Housing: Apartment Do you presently have visiting nurse or other home services: No Alcohol intake: current Alcohol intake frequency: other Alcohol type: beer Patient Tobacco Use Status: Current someday Tobacco user Tobacco use type: Cigarette Substance Use Type: Crack/Cocaine, Heroin and Marijuana service: No Current occupational status: unemployed Review of Systems Const Reports as per HPI Physical Exam Vital Signs: Last Vital Signs Pulse 89 07/05/23 13:08 BP 110/78 07/05/23 13:08 Pulse Ox 96 07/05/23 13:08 Oxygen Delivery Method Room Air 07/05/23 13:08 Const General: cooperative, healthy appearing and no acute distress Nutritional Appearance: overweight Orientation/consciousness: patient oriented x3 Limitations: no limitations Neuro General: patient oriented x3 Office Meds Sublocade 300 mg/1.5 mL solution,extended release subcutaneous syringe Performing Provider: Lissa Marcelino CNP Performing Location: [facility] Administered by: Cassandra Vigil RN on 07/05/23 13:58 Dose Route Admin Location Dispensed Lot Number Expiration Date [facility] [employer] 300 mg subcut RUQ 1.5 mL [id number] 09/08/24 [address]-9 [employer]. Comments: Pt tolerated injection well. Educated on S/S of infection. Encouraged to call [facility] with questions/concerns. Pt denies any SE of last injection. Also denies cravings/urges to use opiates. Assessment & Plan Assessment & Plan (1) Opioid use disorder, severe, dependence: Code(s): F11.20 - Opioid dependence, uncomplicated Plan: tolerated injection (2) Cocaine use disorder: Code(s): F14.10 - Cocaine abuse, uncomplicated Plan: risk reduction discussion planning for pay days follow up 2 weeks Orders: Orders AMB Buprenorphine Injection - Patient Supplied Today F11.20 - Opioid dependence, uncomplicated Coding Level of Care Code Est Pt Level 4 (16690) Diagnoses Opioid use disorder, severe, dependence F11.20 Cocaine use disorder F14.10
[2023-07-05 13:08] VITALS: BP 110/78; PULSE 89; O2SAT 96
== END 2023-07-05 13:29 | disposition home or self-care (01) ==
PROVIDERS: Visit Provider Nurse Practitioner Psychiatric/Mental Health
DX: F11.20 Opioid dependence, uncomplicated (principal); F14.10 Cocaine abuse, uncomplicated
CPT/HCPCS: 99214

== ENCOUNTER → 2023-07-05 13:04 | Outpatient (BNVA) | payer OTHER, SELFPAY | PROVIDERS: Visit Provider Nurse Practitioner Psychiatric/Mental Health | DX: F11.20 Opioid dependence, uncomplicated (principal); F14.10 Cocaine abuse, uncomplicated | CPT/HCPCS: 96372; 99212; Q9992 ==

== ENCOUNTER 2024-06-29 10:02 | Outpatient (AMB) | payer OTHER, SELFPAY ==
--- NOTE | 2024-06-29 10:20 | A.OFFVISCC_ITS ---
Vital Signs 06/29/24 10:30 Weight 221 lb BP 110/60 Blood Pressure Location Rt brachial Position Sitting Pulse 64 Pulse Source Pulse Oximeter Pulse Oximetry (%) 96 Intake Visit Reasons: Restart Allergies loratadine [From CLARITIN] Allergy (Unknown, Unverified 07/05/23 13:09) UNK tetracycline [TETRACYCLINE] Allergy (Unknown, Unverified 07/05/23 13:09) HIVES Medication List - Last Reconciled 07/05/24 by Lissa Marcelino CNP buprenorphine ER (Sublocade) 300 mg (1.5 mL) subcut ONCE buprenorphine-naloxone 8-2 mg (Suboxone) 1 film buccal DAILY bupropion HCl 100 mg PO BID clonidine HCl 0.1 mg PO TID naloxone 4 mg/actuation 4 mg intranasal Q2M PRN risperidone 2 mg PO BEDTIME trazodone 150 mg PO BEDTIME PRN HPI HPI Restart: Details: Patient presents for OUD treatment follow up Recently released from incarceration --incarcerated since July Continued on suboxone and received Sublocade 300mg injections X2 prior to release last injection administered the last week of May Medication list updated Plans to present to [facility] walk in for continuation of psychiatric medications Review of Systems Const Reports as per HPI and Reports no additional complaints Physical Exam Vital Signs: Last Vital Signs Pulse 64 06/29/24 10:30 BP 110/60 06/29/24 10:30 Pulse Ox 96 06/29/24 10:30 Const General: cooperative, healthy appearing and well groomed Nutritional Appearance: average body habitus Limitations: no limitations Psych Appearance: well kempt Speech and movement: Normal speech and movement present Affect: normal affect Attitude: cooperative Thought process: Normal thought process present Thought content: Normal thought content present Insight: Fair insight present (Psych) Judgement: Good judgement present (Psych) Assessment & Plan Assessment & Plan (1) Opioid use disorder, severe, dependence: Code(s): F11.20 - Opioid dependence, uncomplicated Category: Medical Plan: * continue sublocade-ordered * PO films ordered to cover until medication comes in * relapse prevention discussion (2) Cocaine use disorder: Code(s): F14.10 - Cocaine abuse, uncomplicated Category: Medical Plan: * relapse prevention discussion Medications: New buprenorphine-naloxone 8-2 mg (Suboxone) 1 film buccal DAILY 14 ea 0RF Refilled buprenorphine ER (Sublocade) 300 mg (1.5 mL) subcut ONCE 1.5 mL 5RF Discontinued citalopram Discontinued Reason: Patient no longer taking 20 mg PO DAILY 30 tabs 1RF risperidone Discontinued Reason: Order 1 mg PO BEDTIME 30 tabs 1RF topiramate Discontinued Reason: Patient no longer taking 50 mg PO BID 60 tabs 0RF PFSH Medical History No known health problems Polysubstance abuse Polysubstance abuse Social History Household Members: Family Housing: Apartment Do you presently have visiting nurse or other home services: No Alcohol intake: current Alcohol intake frequency: other Alcohol type: beer Patient Tobacco Use Status: Current someday Tobacco user Tobacco use type: Cigarette Substance Use Type: Crack/Cocaine, Heroin and Marijuana service: No Current occupational status: unemployed
[2024-06-29 10:30] VITALS: BP 110/60; PULSE 64; O2SAT 96
== END 2024-06-29 10:58 | disposition home or self-care (01) ==
PROVIDERS: Visit Provider Nurse Practitioner Psychiatric/Mental Health
DX: F11.20 Opioid dependence, uncomplicated (principal); F14.10 Cocaine abuse, uncomplicated
CPT/HCPCS: 99214

== ENCOUNTER → 2024-06-29 10:02 | Outpatient (BNVA) | payer OTHER, SELFPAY | PROVIDERS: Visit Provider Nurse Practitioner Psychiatric/Mental Health | DX: F11.20 Opioid dependence, uncomplicated (principal); F14.10 Cocaine abuse, uncomplicated; F17.210 Nicotine dependence, cigarettes, uncomplicated; Z51.81 Encounter for therapeutic drug level monitoring | CPT/HCPCS: 99212 ==

== ENCOUNTER 2024-07-05 10:48 | Outpatient (AMB) | payer OTHER, SELFPAY ==
[2024-07-05 11:23] VITALS: BP 130/70; PULSE 90; O2SAT 99
--- NOTE | 2024-07-05 11:23 | AM.OFFVISNUR ---
Vital Signs 07/05/24 11:23 BP 130/70 Blood Pressure Location Lt brachial Position Sitting Pulse 90 Pulse Oximetry (%) 99 Oxygen Delivery Method Room Air Intake Visit Reasons: Sublocade Allergies loratadine [From CLARITIN] Allergy (Unknown, Unverified 07/05/23 13:09) UNK tetracycline [TETRACYCLINE] Allergy (Unknown, Unverified 07/05/23 13:09) HIVES
== END 2024-07-05 11:12 | disposition home or self-care (01) ==
DX: F11.90 Opioid use, unspecified, uncomplicated (principal)

== ENCOUNTER → 2024-07-05 10:48 | Outpatient (BNVA) | payer OTHER, SELFPAY | DX: F19.10 Other psychoactive substance abuse, uncomplicated (principal); Z51.81 Encounter for therapeutic drug level monitoring; Z79.899 Other long term (current) drug therapy | CPT/HCPCS: 96372; Q9992 ==

== ENCOUNTER 2024-08-02 15:32 | Outpatient (AMB) | payer OTHER, SELFPAY ==
--- NOTE | 2024-08-02 15:40 | AM.OFFVISNUR ---
Vital Signs 08/02/24 15:41 BP 120/70 Blood Pressure Location Lt brachial Position Sitting Pulse Source Pulse Oximeter Pulse Oximetry (%) 99 Intake Visit Reasons: Sublocade Injection Allergies loratadine [From CLARITIN] Allergy (Unknown, Unverified 07/05/23 13:09) UNK tetracycline [TETRACYCLINE] Allergy (Unknown, Unverified 07/05/23 13:09) HIVES Nursing Note Patient Presents for sublocade Injection. Current Dose 300mg . Given in the LLQ with no noted or stated complication. Denies any issues with previous injection. Denies symptoms, and denies any break through cravings. Last appt with provider was 2 visits ago, will follow up with RN in 4 weeks for injection. Will need to see provider for check in September . Office Meds Sublocade 300 mg/1.5 mL solution,extended release subcutaneous syringe Performing Provider: Lissa Marcelino CNP Performing Location: [facility] Administered by: Iva Britt RN on 08/02/24 16:19 Dose Route Admin Location Dispensed Lot Number Expiration Date [facility] Owner Operator 300 mg subcut 1.5 mL [id number] 06/10/25 [address]-2 [employer]. Assessment & Plan Assessment & Plan Orders: Orders AMB Buprenorphine Injection - Patient Supplied Today F11.90 - Opioid use, unspecified, uncomplicated Medications: New Sublocade ER (buprenorphine) 300 mg (1.5 mL) subcut ONCE 1.5 mL 0RF NS F11.90 - Opioid use, unspecified, uncomplicated
[2024-08-02 15:41] VITALS: BP 120/70; O2SAT 99
== END 2024-08-02 16:14 | disposition home or self-care (01) ==
DX: F11.90 Opioid use, unspecified, uncomplicated (principal)

== ENCOUNTER → 2024-08-02 15:32 | Outpatient (BNVA) | payer OTHER, SELFPAY | DX: F11.90 Opioid use, unspecified, uncomplicated (principal); Z51.81 Encounter for therapeutic drug level monitoring; Z79.899 Other long term (current) drug therapy | CPT/HCPCS: 96372; Q9992 ==

== ENCOUNTER → 2024-09-26 15:33 | Outpatient (BNVA) | payer OTHER, SELFPAY | DX: F11.90 Opioid use, unspecified, uncomplicated (principal) ==

== ENCOUNTER 2024-10-18 20:52 | Emergency (ER) | payer OTHER, SELFPAY ==
[2024-10-18 20:54] VITALS: BP 158/96; PULSE 98; RESP 20; TEMP 36.9; O2SAT 99; BMI 31.9
--- OUTSIDE RECORDS SUMMARY | 2024-10-19 00:45 | XMS_ITS | Clinical Summary ---
Author Organization Patient Business Ser [facility] Address [address] [place] [address] Care Team Providers Care Facility Sales And Admin Name Role Phone Kingsley Lyons MD Primary Care Provider Allergies Active Allergy Reactions Criticality Noted Date Comments Other Itching,Runny nose 12/15/2017 Seasonal allergies Medications omeprazole (PriLOSEC) [address] capsule Take 1 Cap by mouth daily. 2019 Active Active Problems Problem Noted Date Diagnosed Date History of cocaine abuse ([facility] V24, [facility] V 28) 06/28/2024 History of opioid abuse ([facility] V24, [facility] V2 8) 06/28/2024 Marijuana use 2019 Gastroesophageal reflux disease 02/20/2018 Headache 04/19/2017 Overview (06/28/2024): F/u Dr. Singh, referred for sleep studies 04/07/17 Resolved Problems Problem Noted Date Diagnosed Date Resolved Date Obesity (BMI 30.0-34.9) 09/17/201906/10 Surgical History Surgery Date Site/Laterality Comments OTHER SURGICAL HISTORY PROCEDURE: DENIES PREVIOUS SURGERY Medical History Medical History Date Comments History of opioid abuse ([facility] /[facility] V24, [facility] V28) DX:History of opioid abuse ( HCC) History of cocaine abuse ( S/[facility] V24, [facility] V28) DX:History of cocaine abuse (HCC) Headache 04/19/2017 DX:Headache; COM MENT: F/u Dr. Singh, referred for sleep studies 04/07/17 Gastroesophageal reflux disease 02/20/2018 DX:Gastroesophageal reflux disease Family History Medical History Relation Name Comments Diabetes Father CAD, HTN, stom ach problems Stomach cancer Maternal Grandfather Asthma Maternal Grandmother COPD Stomach cancer Paternal Grandfather Other: unknown cancer Paternal Grandmother Blindness Neg Hx Cataracts Neg Hx Glaucoma Neg Hx Macular degeneration Neg Hx Strabismus Neg Hx Relation Name Status Comments Brother x 4 Alive Father Alive Maternal Grandfather Maternal Grandmother Mother Alive Paternal Grandfather Paternal Grandmother Sister x 4 Alive Social History Tobacco Use Types Packs/Day Years Used Date Smoking Tobacco: Never Assessed Cigarettes 0.3 18.1 Started: 2006 Alcohol Use Standard Drinks/Week Comments Yes 0 (1 standard drink = 0.6 oz pur e alcohol) Sex and Gender Information Value Date Recorded Sex Assigned at Male 08/30/2024 2:44 PM EST Legal Sex Male 2:08 PM EST Gender Identity Male 08/30/2024 2:44 PM EST Sexual Orientation Straight 08/30/2024 2: 44 PM EST Obstetrics History Plan of Treatment Upcoming Encounters Date Type Department Care Team (Late st Contact Info) Description 03/28/2025 11:30 AM EDT Office Visit Adult Medicine [facility] [address] [place] [address] Kingsley Lyons MD [address] [place] [address] Health Maintenance Due Date Last Done Comments Hepatitis B Vaccines (1 of 3 - 19+ 3-dose series) 09/18/2011 COVID-19 Vaccine ( - 2023-2 5 season) 2024 Influenza Vaccine (#1) 2024 Depression Screening 08/07/2024 Social Influencers of Health Screening 08/07/2024 DTaP,Tdap,and Td Vaccines (2 - Td or Tdap) 09/05/2031 09/05/2021 HIV Screening Completed 05/05/2017 Hepatitis C Screening Completed 09/06/2021 , 05/05/2017 HIB Vaccines Aged Out No longer eligi ble based on patient's age to complete this topic HPV Vaccines Aged Out No longer eligi ble based on patient's age to complete this topic Hepatitis A Vaccines Aged Out No long er eligible based on patient's age to complete this topic IPV Vaccines Aged Out No longer eligi ble based on patient's age to complete this topic MMR Vaccines Aged Out No longer eligi ble based on patient's age to complete this topic Meningococcal ACWY Vaccine Aged Out N o longer eligible based on patient's age to complete this topic Meningococcal B Vaccine Aged Out No l onger eligible based on patient's age to complete this topic Pneumococcal Vaccine: Pediatrics (0 to 5 Years) and At-Risk Patients (6 to 64 Years) Aged Out No longer eligible b ased on patient's age to complete this topic RSV Immunization Patients Under 20 months Aged Out No longer eligible b ased on patient's age to complete this topic Varicella Vaccines Aged Out No longer eligible based on patient's age to complete this topic Procedures Procedure Name Priority Date/Time Associated Diagnosis Comments HEPATITIS C SCREENING Routine 05/05/2017 HIV SCREENING Routine 05/05/2017 from Last 3 Months or Most Recently Relevant to Health Maintenance Results * HIV Screening (05/05/2017) HIV Screening abstracted [facility] Provider HEALTH MAINTENANCE Final Result * Hepatitis C Screening (05/05/2017) Hepatitis C Screening abstracted Historical Provider HEALTH MAINTENANCE Final Result from Last 3 Months or Most Recently Relevant to Health Maintenance Insurance [facility] [place] [address] Care Teams Facility Sales And Admin Relationship Specialty Start Date End Date Kingsley Lyons MD [address] [place] [address] PCP - General Internal Medicine 08/30/24
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
--- OUTSIDE RECORDS SUMMARY | 2024-10-19 00:46 | XMS_ITS | Clinical Summary ---
Author Organization [facility] Address [address] [place] [id number] Phone Care Team Providers Care Associate Professor Of Pathology Name Role Phone Unavailable Primary Care Provider Unavailabl e Immunizations Immunization Administration Dates Next Due DTP 06/21/1994, 3,01/23/1993,11/20 DTaP 5 11/04/1997 H1N1 10/16/2009 Hep B, ped/adol 06/21/1994,1992,1992 Hib (PRP-T) 06/21/1994, 3,01/23/1993,11/20 IPV 01/23/1993 Influenza Split 09/06/2011 Influenza, injectable, trivalent 07/05/2008 MMR 11/01/1996,06/21/1994 Meningococcal Conj (Menactra) MCV4P 08/02/2007 OPV 11/04/1997,06/21/1994,1992 Td (adult) (MBL), 2 Lf tetan us toxoid, PF, adsorbed 05/06/2004 Tdap 08/02/2007 Varicella 10/08/2008,11/04/1997 Family History Relation Name Status Comments Father Alive Father: Hyperte nsion, Diabetes, Heart problems Mother Alive Mother: Asthma Other Family history of Diabetes mellitus, Family history of Seizure disorder, Family history of ADD/ADHD, Family history of Obesity, Family history of Migraines Sister Alive Sister: Asthma Social History Tobacco Use Types Packs/Day Years Used Date Smoking Tobacco: Former Comments:Former smoker Sex and Gender Information Value Date Recorded Sex Assigned at Not on file Legal Sex Male 4:40 PM EDT Gender Identity Not on file Sexual Orientation Not on file Last Filed Vital Signs Vital Sign Reading Time Taken Comments Blood Pressure 114/60 11/12/2011 12:00 AM EDT Pulse - - Temperature 36.7 ??C (98 ??F) 11/12/2011 12:00 AM EDT Respiratory Rate - - Oxygen Saturation - - Inhaled Oxygen Concentration - - Weight 80.3 kg (177 lb) 11/12/2011 12:00 AM EDT Height 166.4 cm (5' 5.5 ) 09/06/2011 12:00 AM ES T Body Mass Index 29.01 09/06/2011 12:00 AM EST Plan of Treatment Health Maintenance Due Date Last Done Comments DTaP,Tdap,and Td Vaccines (7 - Td or Tdap) 08/02/2017 08/02/2007, 05/06/2004, 11/04/1997, Additional history exists Influenza Vaccines (#1) 2024 09/06/2011, 07/05 COVID-19 Vaccine ( season) 2024 HIB Vaccines Completed 06/21/1994, 03/12, 01/23/1993, Additional history exists Hepatitis B Vaccines Completed 06/21/1994, 1992, 1992 MMR Vaccines Completed 11/01/1996, 06/21/1994 IPV Vaccines Completed 11/04/1997, 06/10, 01/23/1993, Additional history exists Meningococcal Vaccine Aged Out 08/02/2007 No salvador lamin eligible based on patient's age to complete this topic Varicella Vaccines Completed 10/08/2008, 11/04/1997 HPV Vaccines Aged Out No longer eligi ble based on patient's age to complete this topic Hepatitis A Vaccines Aged Out No long er eligible based on patient's age to complete this topic Men B Vaccine Aged Out No longer elig ible based on patient's age to complete this topic Pneumococcal Vaccine Aged Out No long er eligible based on patient's age to complete this topic
--- OUTSIDE RECORDS SUMMARY | 2024-10-19 00:46 | XMS_ITS | Clinical Summary ---
Author Organization [facility] Address [address] [place] [address] Care Team Providers Care Infectious Waste Technician Name Role Phone Robert Jordan MD Primary Care Provider Allergies Active Allergy Reactions Severity Noted Date Comments Seasonal Allergies Runny Nose/Rhinitis,Itching/Pruritus 12/15/2017 Medications Medication Sig Dispensed Refills Start Date End Date Status omeprazole (PRILOSEC) 40 MG capsule Take 1 Cap by mouth daily. 90 Cap 1 2019 Active Active Problems Problem Noted Date Marijuana use 2019 Obesity (BMI 30.0-34.9) 2019 Family history of stomach cancer 020 Gastroesophageal reflux disease 02/21/20 18 Headache 04/19/2017 Overview: F/u Dr. Singh, referred for sleep studies 04/07/17 History of opioid abuse History of cocaine abuse Family History Medical History Relation Name Comments Diabetes Father CAD, HTN, stom ach problems CA Stomach Maternal Grandfather Asthma Maternal Grandmother COPD Cancer of the Stomach Paternal Grandfather unknown cancer Paternal Grandmother Blindness Negative Hx Cataract Negative Hx Glaucoma Negative Hx Macular Degeneration Negative Hx Strabismus Negative Hx Relation Name Status Comments Brother x 4 Alive Father Alive Maternal Grandfather Maternal Grandmother Mother Alive Paternal Grandfather Paternal Grandmother Sister x 4 Alive Social History Tobacco Use Types Packs/Day Years Used Date Smoking Tobacco: Every Day Cigarettes 0.3 Started: 2006 Smokeless Tobacco: Never Alcohol Use Standard Drinks/Week Comments Yes 0 (1 standard drink = 0.6 oz pur e alcohol) 4-5 drinks per week Sex Assigned at Date Recorded Not on file Last Filed Vital Signs Vital Sign Reading Time Taken Comments Blood Pressure 128/80 2019 1:50 PM EDT C Pulse 81 2019 1:50 PM EDT Temperature 36.7 ??C (98.1 ??F) 2019 1:50 PM ED T Respiratory Rate 16 12/05/2018 9:03 AM EDT Oxygen Saturation 98% 10/26/2017 10:40 AM EDT Inhaled Oxygen Concentration - - Weight 95.3 kg (210 lb) 2019 1:50 PM EDT Height 170.2 cm (5' 7 ) 2019 1:50 PM EDT Body Mass Index 32.89 2019 1:50 PM EDT Plan of Treatment Health Maintenance Due Date Last Done Comments Covid-19 Vaccine (#1) 03/20/1993 TOBACCO CHECK/ADVISE 2010 DTAP/TDAP/TD (1 - Tdap) 09/18/2011 CHOLESTEROL SCREENING 12/18/2021 12/18/2016 BASELINE HEALTH EXAM 18-39 05/05/2022 05/05/2017, BMI CHECK/ADVISE 07/11/2024 07/24/2018, , 11/14/2017, Additional history exists DEPRESSION SCREENING/FOLLOWUP 07/11/2024 12/05/2018 SOCIAL NEEDS SCREENING 07/11/2024 INFLUENZA (Season Ended) 2025 05/22/2020 PNEUMOCOCCAL VACCINE FOR HIG H RISK PATIENTS (#1) 2057 Care Teams Infectious Waste Technician Relationship Specialty Start Date End Date Robert Jordan MD [address] [place] [address] PCP - General Internal Medicine 07/08/21
--- OUTSIDE RECORDS SUMMARY | 2024-10-19 00:46 | XMS_ITS | Patient Health Record ---
Author Organization [facility] Address [address] [place], [place] [id number] Support Name Relationship Address Phone Torrie Luna Emergency Contact [address] [facility] [place] [address] Reason For Referral No Information Plan Of Treatment No Information Insurance Providers Payer Name Payer Address Payer Phone Subscriber Number Group Number Insured Name Patient Relationship to Insured Coverage Start Date Coverage End Date Insurance - Refuse Patient refuse to apply for insurance [id number] [place] [id number] Shant Vazquez Self - patient is the insured 2
--- OUTSIDE RECORDS SUMMARY | 2024-10-19 00:46 | XMS_ITS | Encounter Summary ---
Author Organization [facility] Address [address] [place] [address] Care Team Providers Care Collateral Clerk Name Role Phone Shyla Cameron MD Primary Care Provider Un available Dipti Posada DO Primary Care Pro vider Unavailable Robert Jordan MD Primary Care Provider [phone] Reason for Visit * Reason Onset Date Comments Work note 12/06/2018 Encounter Details Date Type Department Care Team Description 12/06/2018 Telephone Adult Medicine [address] [address] Shyla Cameron MD Work note Social History Tobacco Use Types Packs/Day Years Used Date Smoking Tobacco: Every Day Cigarettes 0.3 Started: 2006 Smokeless Tobacco: Never Alcohol Use Standard Drinks/Week Comments Yes 0 (1 standard drink = 0.6 oz pur e alcohol) 4-5 drinks per week Sex Assigned at Date Recorded Not on file documented as of this encounter Miscellaneous Notes * Telephone Encounter - Trevor Montenegro M.A. - 12/06/2018 3:42 PM EDT Patient was aware of letter on 12/05/18 in [facility]. * Telephone Encounter - Ceferino Ye PA-C - 12/06/2018 9:02 AM EDT Ltter written * Telephone Encounter - Daniella Edmonds M.A. - 12/06/2018 8:57 AM EDT Ceferino, Now the pt is stating that the letter needs to say no restrictions. Please advise. * Telephone Encounter - Elizabeth Espinoza - 12/06/2018 8:45 AM EDT Work note is for: Return to Work Note Has patient been seen for the reason they were absent from work? No. 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 No. 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
--- OUTSIDE RECORDS SUMMARY | 2024-10-19 00:46 | XMS_ITS | Encounter Summary ---
Author Organization [facility] Address [address] [place] [address] Care Team Providers Care Scouts Name Role Phone Shyla Cameron MD Primary Care Provider Un available Shyla Cameron MD Primary Care Provider Un available Dipti Posada DO Primary Care Pro vider Unavailable Robert Jordan MD Primary Care Provider [phone] Encounter Details Date Type Department Care Team Description 12/15/2016 Release of Information Medical Records [address] [place] [id number] Abstract, Provider Social History Tobacco Use Types Packs/Day Years Used Date Smoking Tobacco: Every Day Sex Assigned at Date Recorded Not on file documented as of this encounter Plan of Treatment Not on file documented as of this encounter Visit Diagnoses Not on filedocumented in this encounter Care Teams Scouts Relationship Specialty Start Date End Date Shyla Cameron MD PCP - General Internal Medicine 12/13/16 Shyla Cameron MD PCP - General Internal Medicine 07/24/18 Dipti Posada DO PCP - General Internal Medicine 08/23/19 07/07/21 Robert Jordan MD [address] [place] [id number] PCP - General Internal Medicine 07/08/21 documented as of this encounter
--- OUTSIDE RECORDS SUMMARY | 2024-10-19 00:46 | XMS_ITS | Clinical Summary ---
Author Organization [facility] Address [address] [place] [address] Care Team Providers Care Canine Enforcement Officer Name Role Phone Unavailable Primary Care Provider Unavailabl e Allergies No known active allergies Medications Medication Sig Dispensed Refills Start Date End Date Status oxyCODONE (ROXICODONE) 5 MG immediate release tablet Take 1 tablet (5 mg total) by mouth every 4 (four) hours as needed for pain. 5 tablet 0 09/06/2021 Active Active Problems Problem Noted Date Diagnosed Date Closed compression fracture of L4 lumbar vertebra, initial encounter 09/05/2021 Immunizations Name Administration Dates Next Due Adacel (Tdap) 09/05/2021 Social History Tobacco Use Types Packs/Day Years Used Date Smoking Tobacco: Never Assessed Sex and Gender Information Value Date Recorded Sex Assigned at Male 09/07/2021 1:01 PM EST Gender Identity Not on file Sexual Orientation Not on file Job Start Date Occupation Industry Not on file Not on file Not on file Last Filed Vital Signs Vital Sign Reading Time Taken Comments Blood Pressure 110/73 09/06/2021 5:33 PM EST Pulse 97 09/06/2021 5:33 PM EST Temperature 36.9 ??C (98.5 ??F) 09/06/2021 5:33 PM ES T Respiratory Rate 16 09/06/2021 5:33 PM EST Oxygen Saturation 99% 09/06/2021 5:33 PM EST Inhaled Oxygen Concentration - - Weight 95.3 kg (210 lb) 09/05/2021 11:21 PM EST Height 172.7 cm (5' 8 ) 09/05/2021 11:21 PM EST Body Mass Index 31.93 09/05/2021 11:21 PM EST Plan of Treatment Health Maintenance Due Date Last Done Comments Hepatitis B Vaccines (1 of 3 - 3-dose series) 1992 COVID-19 Vaccine (#1) 03/20/1993 Depression Screening 2004 BMI Counseling 2010 Preventative Health Evaluation 2010 Influenza Vaccine (#1) 2024 DTap / Tdap / Td (2 - Td or Tdap) 09/05/2031 022 Hepatitis C Screening Completed 09/06/2021 Pneumococcal Vaccine Aged Out No long er eligible based on patient's age to complete this topic RSV Ped < 20 months Aged Out No longe r eligible based on patient's age to complete this topic Advance Directives For more information, please contact: [phone] Latest Code Status on File Code Status Date Activated Date Inactivated Comments Full Code 09/05/2021 7:07 AM 09/07/2021 2:25 AM
--- OUTSIDE RECORDS SUMMARY | 2024-10-19 00:46 | XMS_ITS | Encounter Summary ---
Author Organization [facility] Address [address] [place] [address] Phone Care Team Providers Care Counter Sales Representative Name Role Phone Fina Mallory MD Primary Care Provider [phone] Encounter Details Date Type Department Care Team (Late st Contact Info) Description 10/24/2010 Documentation [facility] Family Medicine [address] [place] [address] Family Medicine, Physician [address] [place], [place] [address] Social History Tobacco Use Types Packs/Day Years Used Date Smoking Tobacco: Never Assessed Sex and Gender Information Value Date Recorded Sex Assigned at Not on file Legal Sex Male 4:40 PM EDT Gender Identity Not on file Sexual Orientation Not on file documented as of this encounter Plan of Treatment Not on file documented as of this encounter Visit Diagnoses Not on filedocumented in this encounter Care Teams Counter Sales Representative Relationship Specialty Start Date End Date Fina Mallory MD [address] [place] [address] [place] [address] PCP - General 02/18/17 09/28/22 documented as of this encounter
--- OUTSIDE RECORDS SUMMARY | 2024-10-19 00:46 | XMS_ITS | Encounter Summary ---
Author Organization [facility] Address [address] [place] [address] Phone Care Team Providers Care Professional Athletes Coach Name Role Phone Fina Mallory MD Primary Care Provider [phone] Encounter Details Date Type Department Care Team (Late st Contact Info) Description 02/24/2017 Conversion Encounter [facility] [address] [place] [address] Social History Tobacco Use Types Packs/Day Years [...] on filedocumented in this encounter Care Teams Professional Athletes Coach Relationship Specialty Start Date End Date Fina Mallory MD [address] [place] [address] PCP - General 02/18/17 09/28/22 documented as of this encounter
--- OUTSIDE RECORDS SUMMARY | 2024-10-19 00:46 | XMS_ITS | Encounter Summary ---
Author Organization [facility] Address [address] [place] [address] Care Team Providers Care Hearing Therapy Teacher Name Role Phone Shyla Cameron MD Primary Care Provider Un available Shyla Cameron MD Primary Care Provider Un available Dipti Posada DO Primary Care Pro vider Unavailable Robert Jordan MD Primary Care Provider [phone] Reason for Visit * Reason Onset Date Comments Provider Call Back 09/07/2017 Encounter Details Date Type Department Care Team Description 09/07/2017 Telephone Eye Services-[address] [address] Philip Yuan OD Provider Call Back Social History Tobacco Use Types Packs/Day Years Used Date Smoking Tobacco: Every Day Cigarettes 0.3 Started: 2006 Smokeless Tobacco: Never Alcohol Use Standard Drinks/Week Comments Yes 0 (1 standard drink = 0.6 oz pur e alcohol) 4-5 drinks per week Sex Assigned at Date Recorded Not on file documented as of this encounter Miscellaneous Notes * Telephone Encounter - Elvira Austin M.A. - 09/07/2017 4:21 PM EST Called and spoke with patient informed him that his Rx for his glasses is read for chicken picker * Telephone Encounter - Leigh Ann Cortés - 09/07/2017 4:12 PM EST Caller requesting call back from provider: Is the caller the patient? YES If caller is not the patient, what is the callers name? N/A Callers relationship to patient? N/A If person calling is not the patient themselves, is there a verbal release in FYI or permanent comments for this person: NO Reason for call back: Patient called for a copy of most recent eye prescription, will chicken picker at [facility]. Please call when completed Caller offered to speak with the nurse for assistance: YES Response: Patient offered to speak with nurse for assistance and patient agreed. Message forwarded to nurse. documented in this encounter Plan of Treatment Not on file documented as of this encounter Visit Diagnoses Not on filedocumented in this encounter Care Teams Hearing Therapy Teacher Relationship Specialty Start Date End Date Shyla Cameron MD PCP - General Internal Medicine 12/13/16 Shyla Cameron MD PCP - General Internal Medicine 07/24/18 Dipti Posada DO PCP - General Internal Medicine 08/23/19 07/07/21 Robert Jordan MD [address] [place] [address] PCP - General Internal Medicine 07/08/21 documented as of this encounter
== END 2024-10-19 00:52 | disposition left against medical advice (07) ==
LOC: HO.ED 10-19 00:44
PROVIDERS: Emergency Provider Emergency Medicine; PCP Nurse Practitioner Primary Care
DX: M79.645 Pain in left finger(s) (principal)
CPT/HCPCS: 99281

== ENCOUNTER 2024-11-07 10:09 | Outpatient (AMB) | payer OTHER, SELFPAY ==
--- NOTE | 2024-11-07 10:20 | AM.OFFVISNUR ---
Vital Signs 11/07/24 10:21 Height 5 ft 8 in Weight 96.615 kg BMI 32.4 Pulse 87 Pulse Oximetry (%) 99 Intake Visit Reasons: Injection Allergies loratadine [From CLARITIN] Allergy (Unknown, Verified 10/18/24 20:56) UNK tetracycline [TETRACYCLINE] Allergy (Unknown, Verified 10/18/24 20:56) HIVES Coding
[2024-11-07 10:21] VITALS: BP 128/88; PULSE 87; O2SAT 99; BMI 32.4
--- NOTE | 2024-11-07 10:56 | AM.OFFVISNUR ---
Vital Signs 11/07/24 10:21 Height 5 ft 8 in Weight 96.615 kg BMI 32.4 BP 128/88 Blood Pressure Location Rt brachial Position Sitting Pulse 87 Pulse Oximetry (%) 99 Intake Visit Reasons: Injection Allergies loratadine [From CLARITIN] Allergy (Unknown, Verified 10/18/24 20:56) UNK tetracycline [TETRACYCLINE] Allergy (Unknown, Verified 10/18/24 20:56) HIVES Nursing Note Rojelio is present for his 4 week Sublocade injection. His last injection was on 09/26/2024. Shant is A&Ox3, pleasant and cooperative with a slightly anxious edge. He reports stability on his current dose of Sublocade and wants to keep it at 300 mg. He denies any cravings or symptoms related to opioid withdrawal. A bridge prescription had been called in for him however he did not pick it up, no need. Shant reports that his cocaine use is back up to daily occurrence. He reports that he was on topamax which he found very helpful, but that it was discontinued by the DR when he was incarcerated. He is seeking treatment options for help with abstinence. Shant was also asked about a disaster recovery manager - it was mentioned during a past visit; a referral will be placed for one. Rojelio was called and will be return for an appointment today at 2pm today with Dr. Rincon for MAT assistance and guidance. He reports that he is on antibiotics for an infection on his L pointer finger prescribed at [facility] and reports resuming 2 of his medications 3 days ago (clonidine and risperdal), he had been not taking them for an extended period of time. Office Meds Sublocade 300 mg/1.5 mL solution,extended release subcutaneous syringe Performing Provider: Barb Rincon MD Performing Location: [facility] Administered by: Arielle Goode RN on 11/07/24 10:52 Dose Route Admin Location Dispensed Lot Number Expiration Date [facility] Laboratory Geneticist 300 mg subcut LLQ 1.5 mL [id number] 10/08/25 [address]-7 [employer] Comments: Patient is here for 4 week OUD follow up and monthly Sublocade injection. Patient reports feeling stable on current dose with no cravings reported. Pt reports no issues with previous injections. Educated on signs and symptoms of infection and encouraged patient to follow up with the [facility] if any issues or questions arise. Pt verbalized understanding. Results AMB 14 Panel Urine Drug Screen Urine Marijuana (THC) Negative Last Edit by Arielle Goode RN on 11/07/24 10:52 Urine Cocaine Positive Last Edit by Arielle Goode RN on 11/07/24 10:52 Urine Morphine Negative Last Edit by Arielle Goode RN on 11/07/24 10:52 Urine Methamphetamine Negative Last Edit by Arielle Goode RN on 11/07/24 10:52 Urine Amphetamine Negative Last Edit by Arielle Goode RN on 11/07/24 10:52 Urine Benzodiazepine Negative Last Edit by Arielle Goode RN on 11/07/24 10:52 Urine Barbiturates Negative Last Edit by Arielle Goode RN on 11/07/24 10:52 Urine Methadone Negative Last Edit by Arielle Goode RN on 11/07/24 10:52 Urine Buprenorphine Negative Last Edit by Arielle Goode RN on 11/07/24 10:52 Urine Tricyclic Antidepressant Negative Last Edit by Arielle Goode RN on 11/07/24 10:52 Urine MDMA Negative Last Edit by Arielle Goode RN on 11/07/24 10:52 Urine Oxycodone Negative Last Edit by Arielle Goode RN on 11/07/24 10:52 Urine Phencyclidine Negative Last Edit by Arielle Goode RN on 11/07/24 10:52 Urine Propoxyphene Negative Last Edit by Arielle Goode RN on 11/07/24 10:52 Assessment & Plan Assessment & Plan Orders: Orders AMB Buprenorphine Injection - Patient Supplied Today F11.20 - Opioid dependence, uncomplicated, F14.10 - Cocaine abuse, uncomplicated AMB 14 Panel Urine Drug Screen Today F11.20 - Opioid dependence, uncomplicated, F14.10 - Cocaine abuse, uncomplicated Coding
--- OUTSIDE RECORDS SUMMARY | 2024-11-07 11:11 | XMS_ITS | Clinical Summary ---
Author Organization [facility] Address [address] [place] [address] Care Team Providers Care Propulsion Generator Repairer Name Role Phone Unavailable Primary Care Provider [...] Advance Directives For more information, please contact: [phone] Latest Code Status on File Code Status Date Activated Date Inactivated Comments Full Code 09/05/2021 7:07 AM 09/07/2021 2:25 AM
--- OUTSIDE RECORDS SUMMARY | 2024-11-07 11:11 | XMS_ITS | Clinical Summary ---
Author Organization [facility] [employer] [facility] Address [address] [place] [address] Care Team Providers Care Stock Chaser Name Role Phone Kingsley Lyons MD Primary Care Provider Allergies Active Allergy Reactions Criticality Noted Date Comments Other Itching,Runny nose 12/15/2017 Seasonal allergies Medications omeprazole (PriLOSEC) [address] capsule Take 1 Cap by mouth daily. 2019 Active Active Problems Problem Noted Date Diagnosed Date History of cocaine abuse ([facility] V24, [facility] V 28) 06/28/2024 History of opioid abuse ([facility] V24, [facility] V2 8) 06/28/2024 Marijuana use 2019 Gastroesophageal reflux disease 02/20/2018 Headache 04/19/2017 Overview (06/28/2024): F/u Dr. Singh, referred for sleep studies 04/07/17 Resolved Problems Problem Noted Date Diagnosed Date Resolved Date Obesity (BMI 30.0-34.9) 09/17/201906/10 Surgical History Surgery Date Site/Laterality Comments OTHER SURGICAL HISTORY PROCEDURE: DENIES PREVIOUS SURGERY Medical History Medical History Date Comments History of opioid abuse ([facility] /[facility] V24, CMS/[facility] V28) DX:History of opioid abuse ( HCC) History of cocaine abuse ( S/[facility] V24, [facility] V28) DX:History of cocaine abuse (HCC) Headache [...] 11:30 AM EDT Office Visit Adult Medicine [facility] [address] [place] [address] Kingsley Lyons MD [address] [place] [address] Health Maintenance Due Date Last Done Comments Hepatitis B Vaccines (1 of 3 - 19+ 3-dose series) 09/18/2011 COVID-19 Vaccine ( - 2023-2 5 season) 2024 Depression Screening 08/07/2024 Social Influencers of Health Screening 08/07/2024 Influenza Vaccine (Season Ended) 2025 DTaP,Tdap,and Td Vaccines (2 - Td or [...] * HIV Screening (05/05/2017) HIV Screening abstracted [facility] Provider HEALTH MAINTENANCE Final Result * Hepatitis C Screening (05/05/2017) Hepatitis C Screening abstracted Historical Provider HEALTH MAINTENANCE Final Result from Last 3 Months or Most Recently Relevant to Health Maintenance Insurance [facility] [employer] [facility] Care Teams Stock Chaser Relationship Specialty Start Date End Date Kingsley Lyons MD [address] [place] [address] PCP - General Internal Medicine 08/30/24
--- OUTSIDE RECORDS SUMMARY | 2024-11-07 11:11 | XMS_ITS | Clinical Summary ---
Author Organization [facility] Address [address] [place] [address] Phone Care Team Providers Care Java Security Architect Name Role Phone Unavailable Primary Care Provider [...]
--- OUTSIDE RECORDS SUMMARY | 2024-11-07 11:11 | XMS_ITS | Encounter Summary ---
Author Organization [facility] Address [address] [place] [address] Phone Care Team Providers Care Documentation Lead Name Role Phone Fina Mallory MD Primary Care Provider [phone] Encounter Details Date Type Department Care Team (Late st Contact Info) Description 10/24/2010 Documentation [facility] [place] [facility] [address] [place] [address] Family Medicine, Physician [address] [place], [place] [address] Social History Tobacco Use Types Packs/Day Years [...] on filedocumented in this encounter Care Teams Documentation Lead Relationship Specialty Start Date End Date Fina Mallory MD [address] [place] [address] [place] [address] PCP - General 02/18/17 09/28/22 documented as of this encounter
--- OUTSIDE RECORDS SUMMARY | 2024-11-07 11:11 | XMS_ITS | Encounter Summary ---
Author Organization [facility] Address [address] [place] [address] Phone Care Team Providers Care Shop Girl Name Role Phone Fina Mallory MD Primary Care Provider [phone] Encounter Details Date Type Department Care Team (Late st Contact Info) Description 02/24/2017 Conversion Encounter [facility] [place] [address] [place] [address] Social History Tobacco Use Types Packs/Day Years [...] on filedocumented in this encounter Care Teams Shop Girl Relationship Specialty Start Date End Date Fina Mallory MD [address] [place] [address] PCP - General 02/18/17 09/28/22 documented as of this encounter
== END 2024-11-07 11:08 | disposition home or self-care (01) ==
LOC: HO.HCC 10:09
PROVIDERS: PCP Nurse Practitioner Primary Care
DX: F14.10 Cocaine abuse, uncomplicated (principal); F11.20 Opioid dependence, uncomplicated

== ENCOUNTER → 2024-11-07 10:09 | Outpatient (BNVA) | payer OTHER, SELFPAY | PROVIDERS: PCP Nurse Practitioner Primary Care | DX: F11.20 Opioid dependence, uncomplicated (principal); F14.10 Cocaine abuse, uncomplicated | CPT/HCPCS: 80307; 96372; Q9992 ==

== ENCOUNTER 2024-11-12 14:31 | Outpatient (AMB) | payer OTHER, SELFPAY ==
--- NOTE | 2024-11-12 14:32 | MHC.OFFVIS ---
Vital Signs 11/12/24 14:39 Pulse 80 Pulse Source Pulse Oximeter Pulse Oximetry (%) 98 Oxygen Delivery Method Room Air Intake Visit Reasons: MAT Allergies loratadine [From CLARITIN] Allergy (Unknown, Verified 11/12/24 14:39) UNK tetracycline [TETRACYCLINE] Allergy (Unknown, Verified 11/12/24 14:39) HIVES HPI Comments Details: He is interested in taking topamax for cocaine use disorder. He did receive Sublocade and feels well. He wants refills on other meds before he sees psychiatry. [facility] Medical History Polysubstance abuse Polysubstance abuse No known health problems Social History Household Members: Family Housing: Apartment Do you presently have visiting nurse or other home services: No Alcohol intake: current Alcohol intake frequency: other Alcohol type: beer Patient Tobacco Use Status: Current someday Tobacco user Tobacco use type: Cigarette Substance Use Type: Crack/Cocaine, Heroin and Marijuana service: No Current occupational status: unemployed Review of Systems Const All systems reviewed & are unremarkable except as noted in HPI and below Physical Exam Vital Signs: Last Vital Signs Pulse 80 11/12/24 14:39 Pulse Ox 98 11/12/24 14:39 Oxygen Delivery Method Room Air 11/12/24 14:39 Const General: cooperative Assessment & Plan Assessment & Plan (1) Cocaine use disorder: Code(s): F14.10 - Cocaine abuse, uncomplicated Category: Medical Plan Give Topamax. See back within couple months. Medications: New topiramate (Topamax) 25 mg PO DAILY 30 tabs 5RF 30 days bupropion HCl 100 mg PO BID 60 tabs 5RF 30 days clonidine HCl 0.1 mg PO TID 90 tabs 5RF 30 days topiramate (Topamax) 50 mg PO BID 60 tabs 5RF 30 days risperidone 2 mg PO BEDTIME 30 tabs 5RF 30 days trazodone 150 mg PO BEDTIME 30 tabs 5RF 30 days Coding Level of Care Code Est Pt Level 3 (95206) Diagnoses Cocaine use disorder F14.10
[2024-11-12 14:39] VITALS: PULSE 80; O2SAT 98
--- OUTSIDE RECORDS SUMMARY | 2024-11-12 16:04 | XMS_ITS | Patient Health Record ---
Author Organization [facility] Address [address] [place], [place] [id number] Support Name Relationship Address Phone Torrie Luna Emergency Contact [address] [facility] [place] [address] Reason For Referral No Information Plan Of Treatment No Information Insurance Providers Payer Name Payer Address Payer Phone Subscriber Number Group Number Insured Name Patient Relationship to Insured Coverage Start Date Coverage End Date Insurance - Refuse Patient refuse to apply for insurance [id number] [facility] [place] [id number] Shant Vazquez Self - patient is the insured 2
--- OUTSIDE RECORDS SUMMARY | 2024-11-12 16:04 | XMS_ITS | Encounter Summary ---
Author Organization [facility] Address [address] [place] [address] Phone Care Team Providers Care Property Developer Name Role Phone Fina Mallory MD Primary Care Provider [phone] Encounter Details Date Type Department Care Team (Late st Contact Info) Description 10/24/2010 Documentation [facility] [place] Family Medicine [address] [place] [address] Family Medicine, Physician [address] [place], [place] [address] Social History Tobacco Use Types Packs/Day Years [...] on filedocumented in this encounter Care Teams Property Developer Relationship Specialty Start Date End Date Fina Mallory MD [address] [place] [address] [place] [address] PCP - General 02/18/17 09/28/22 documented as of this encounter
--- OUTSIDE RECORDS SUMMARY | 2024-11-12 16:04 | XMS_ITS | Encounter Summary ---
Author Organization [facility] Address [address] [place] [address] Care Team Providers Care Clinical Applications Manager Name Role Phone Shyla Cameron MD Primary Care Provider Un available Dipti Posada DO Primary Care Pro vider Unavailable Robert Jordan MD Primary Care Provider [phone] Reason for Visit * Reason Onset Date Comments Work note 12/06/2018 Encounter Details Date Type Department Care Team Description 12/06/2018 Telephone Adult Medicine [address] [address] Shyla Cameron MD Work note Social History [...] like note to be: Placed in patient pickle maker documented in this encounter Plan of Treatment Not on file documented as of this encounter Visit Diagnoses Not on filedocumented in this encounter Care Teams Clinical Applications Manager Relationship Specialty Start Date End Date Shyla Cameron MD PCP - General Internal Medicine 07/24/18 Dipti Posada DO PCP - General Internal Medicine 08/23/19 07/07/21 Robert Jordan MD [address] [place] [address] PCP - General Internal Medicine 07/08/21 documented as of this encounter
--- OUTSIDE RECORDS SUMMARY | 2024-11-12 16:04 | XMS_ITS | Encounter Summary ---
Author Organization [facility] Address [address] [place] [address] Care Team Providers Care Bill Hiker Name Role Phone Shyla Cameron MD Primary Care Provider Un available Shyla Cameron MD Primary Care Provider Un available Dipti Posada DO Primary Care Pro vider Unavailable Robert Jordan MD Primary Care Provider [phone] Encounter Details Date Type Department Care Team Description 04/07/2017 Risk Advisor Report Medical Records [address] [place] [address] Ld Singh MD Social History Tobacco Use Types Packs/Day Years Used Date Smoking Tobacco: Every Day Sex Assigned at Date Recorded Not on file documented as of this encounter Plan of Treatment Not on file documented as of this encounter Visit Diagnoses Not on filedocumented in this encounter Care Teams Bill Hiker Relationship Specialty Start Date End Date Shyla Cameron MD PCP - General Internal Medicine 12/13/16 Shyla Cameron MD PCP - General Internal Medicine 07/24/18 Dipti Posada DO PCP - General Internal Medicine 08/23/19 07/07/21 Robert Jordan MD [address] [place], [place] [id number] PCP - General Internal Medicine 07/08/21 documented as of this encounter
--- OUTSIDE RECORDS SUMMARY | 2024-11-12 16:04 | XMS_ITS | Clinical Summary ---
Author Organization [facility] Address [address] [place] [address] Care Team Providers Care Cracking Unit Operator Name Role Phone Kingsley Lyons MD Primary Care Provider Allergies Active Allergy Reactions Criticality Noted Date Comments Other Itching,Runny nose 12/15/2017 Seasonal allergies Medications omeprazole (PriLOSEC) [address] capsule Take 1 Cap by mouth daily. 2019 Active Active Problems Problem Noted Date Diagnosed Date History of cocaine abuse ([facility] V24, [facility] V 28) 06/28/2024 History of opioid abuse ([facility] V24, [facility] V2 8) 06/28/2024 Marijuana use 2019 Gastroesophageal reflux disease 02/20/2018 Headache 04/19/2017 Overview (06/28/2024): F/u Dr. Singh, referred for sleep studies 04/07/17 Resolved Problems Problem Noted Date Diagnosed Date Resolved Date Obesity (BMI 30.0-34.9) 09/17/201906/10 Surgical History Surgery Date Site/Laterality Comments OTHER SURGICAL HISTORY PROCEDURE: DENIES PREVIOUS SURGERY Medical History Medical History Date Comments History of opioid abuse (CMS /[facility] V24, [facility] V28) DX:History of opioid abuse ( HCC) History of cocaine abuse ( S/[facility] V24, [facility] V28) DX:History of cocaine abuse [...] Date Smoking Tobacco: Never Assessed Cigarettes 0.3 18.2 Started: 2006 Alcohol Use Standard Drinks/Week Comments [...] 11:30 AM EDT Office Visit Adult Medicine [facility] [address] [place] [address] Kingsley Lyons MD [address] [place] [address] Health Maintenance Due Date Last Done Comments [...] Most Recently Relevant to Health Maintenance Insurance [facility] [employer] Care Teams Cracking Unit Operator Relationship Specialty Start Date End Date Kingsley Lyons MD [address] [place] [address] PCP - General Internal Medicine 08/30/24
--- OUTSIDE RECORDS SUMMARY | 2024-11-12 16:04 | XMS_ITS | Clinical Summary ---
Author Organization [employer] [facility] Address [address] [place] [address] Care Team Providers Care Animal Sitter Name Role Phone Unavailable Primary Care Provider [...] Advance Directives For more information, please contact: [phone] Latest Code Status on File Code Status Date Activated Date Inactivated Comments Full Code 09/05/2021 7:07 AM 09/07/2021 2:25 AM
--- OUTSIDE RECORDS SUMMARY | 2024-11-12 16:04 | XMS_ITS | Clinical Summary ---
Author Organization [facility] Address [address] [place] [address] Phone Care Team Providers Care Ski Binding Fitter And Repairer Name Role Phone Unavailable Primary Care [...]
--- OUTSIDE RECORDS SUMMARY | 2024-11-12 16:04 | XMS_ITS | Encounter Summary ---
Author Organization [facility] Address [address] [place] [address] Care Team Providers Care Leather Products Supervisor Name Role Phone Robert Jordan MD Primary Care Provider [phone] Reason for Visit * Reason Onset Date Comments Error 07/08/2021 Encounter Details Date Type Department Care Team Description 07/08/2021 [place]phone [place] [address] Robert Jordan MD [address] [place] [address] Error Social History Tobacco Use Types Packs/Day Years Used Date Smoking Tobacco: Every Day Cigarettes 0.3 Started: 2006 Smokeless Tobacco: Never Alcohol Use Standard Drinks/Week Comments Yes 0 (1 standard drink = 0.6 oz pur e alcohol) 4-5 drinks per week Sex Assigned at Date Recorded Not on file documented as of this encounter Miscellaneous Notes * Telephone Encounter - Emily Hernández - 07/08/2021 10:07 AM EST error documented in this encounter Plan of Treatment Not on file documented as of this encounter Visit Diagnoses Not on filedocumented in this encounter Care Teams Leather Products Supervisor Relationship Specialty Start Date End Date Robert Jordan MD [address] [place] [address] PCP - General Internal Medicine 07/08/21 documented as of this encounter
--- OUTSIDE RECORDS SUMMARY | 2024-11-12 16:04 | XMS_ITS | Encounter Summary ---
Author Organization [facility] Address [address] [place] [address] Care Team Providers Care Flatwork Presser Name Role Phone Shyla Cameron MD Primary Care Provider Un available Shyla Cameron MD Primary Care Provider Un available Dipti Posada DO Primary Care Pro vider Unavailable Robert Jordan MD Primary Care Provider [phone] Encounter Details Date Type Department Care Team Description 03/20/2018 Orders Only Gastroenterology [address] [address] Irineo Yadav PA-C Dyspepsia Social History Tobacco Use Types Packs/Day Years [...] on file documented as of this encounter Procedures Procedure Name Priority Date/Time Associated Diagnosis Comments CHG HPYLORI BREATH ANAL UREA SE ACT NON-RADACT ISTOPE Routine 03/08/2018 Dyspepsia documented in this encounter Results * H PYLORI BREATH TEST ANALYSIS (03/08/2018) 03/08/2018 Irineo Yadav PA-C [facility] documented in this encounter Visit Diagnoses Diagnosis Dyspepsia Dyspepsia and other specified disorders of function of stomach documented in this encounter Care Teams Flatwork Presser Relationship Specialty Start Date End Date Shyla Cameron MD PCP - General Internal Medicine 12/13/16 Shyla Cameron MD PCP - General Internal Medicine 07/24/18 Dipti Posada DO PCP - General Internal Medicine 08/23/19 07/07/21 Robert Jordan MD [address] [place] [address] PCP - General Internal Medicine 07/08/21 documented as of this encounter
--- OUTSIDE RECORDS SUMMARY | 2024-11-12 16:04 | XMS_ITS | Encounter Summary ---
Author Organization [facility] Address [address] [place] [address] Phone Care Team Providers Care Home Visit Field Care Manager Name Role Phone Fina Mallory MD Primary Care Provider [phone] Encounter Details Date Type Department Care Team (Late st Contact Info) Description 02/24/2017 Conversion Encounter [facility] [place] [address] [place] [address] Social History Tobacco Use Types Packs/Day Years [...] on filedocumented in this encounter Care Teams Home Visit Field Care Manager Relationship Specialty Start Date End Date Fina Mallory MD [address] [place] [address] PCP - General 02/18/17 09/28/22 documented as of this encounter
--- OUTSIDE RECORDS SUMMARY | 2024-11-12 16:04 | XMS_ITS | Encounter Summary ---
Author Organization [facility] Address [address] [place] [address] Care Team Providers Care Termite Renewal Inspector Name Role Phone Robert Jordan MD Primary Care Provider [phone] Encounter Details Date Type Department Care Team Description 05/04/2022 Hospital Medical Records [address] [place] [id number] Elvin Escobar MD Social History Tobacco Use Types Packs/Day [...] on filedocumented in this encounter Care Teams Termite Renewal Inspector Relationship Specialty Start Date End Date Robert Jordan MD [address] [place] [phone] PCP - General Internal Medicine 07/08/21 documented as of this encounter
== END 2024-11-12 15:08 | disposition home or self-care (01) ==
LOC: HO.HCC 14:31
PROVIDERS: PCP Nurse Practitioner Primary Care; Visit Provider Internal Medicine
DX: F14.10 Cocaine abuse, uncomplicated (principal)
CPT/HCPCS: 99213

== ENCOUNTER → 2024-11-12 14:31 | Outpatient (BNVA) | payer OTHER, SELFPAY | PROVIDERS: PCP Nurse Practitioner Primary Care; Visit Provider Internal Medicine | DX: F14.10 Cocaine abuse, uncomplicated (principal) | CPT/HCPCS: 99212 ==